=== PATIENT | female | born 1950 | race Caucasian/White ===

== ENCOUNTER → 2023-08-29 07:54 | Outpatient (BNVA) | payer BC, SELFPAY | PROVIDERS: Family Provider Family Medicine; PCP Family Medicine; Visit Provider Podiatrist Foot & Ankle Surgery | DX: M25.572 Pain in left ankle and joints of left foot (principal); S99.912A Unspecified injury of left ankle, initial encounter; S82.832A Other fracture of upper and lower end of left fibula, initial encounter for closed fracture; S93.422A Sprain of deltoid ligament of left ankle, initial encounter; W19.XXXA Unspecified fall, initial encounter | CPT/HCPCS: 73610 ==

== ENCOUNTER 2023-08-29 10:06 | Outpatient (CLI) | payer BC, SELFPAY | END 2023-08-29 10:07 | disposition home or self-care (01) | LOC: SPT 10:07 | PROVIDERS: Family Provider Family Medicine; PCP Family Medicine; Visit Provider Podiatrist Foot & Ankle Surgery | DX: Z46.89 Encounter for fitting and adjustment of other specified devices (principal); S99.919D Unspecified injury of unspecified ankle, subsequent encounter; X58.XXXD Exposure to other specified factors, subsequent encounter | CPT/HCPCS: L1902 ==

== ENCOUNTER 2023-09-12 14:01 | Outpatient (RCR) | payer BC, SELFPAY | END 2023-10-03 10:43 | disposition home or self-care (01) | LOC: SPT 14:01 | PROVIDERS: Visit Provider Podiatrist Foot & Ankle Surgery | DX: M25.572 Pain in left ankle and joints of left foot (principal); R26.89 Other abnormalities of gait and mobility | CPT/HCPCS: 97110; 97161 ==

== ENCOUNTER 2023-09-26 08:17 | Outpatient (CLI) | payer MEDICARE, SELFPAY ==
--- NOTE | 2023-09-26 08:45 | MR_ITS ---
WS: [id number] MRI LEFT ANKLE WITHOUT CONTRAST. COMPARISON: Radiographs 08/29/2023 Multiplanar, multisequence imaging is performed without contrast. Healing oblique fracture distal fibula is nondisplaced. No osteochondral lesions along the talar dome . There is moderate narrowing of the tibiotalar joint space. Normal calcaneus. Anterior and posterior talofibular ligaments are intact. Anterior talofibular ligament does contain s ome increased fluid but the majority of the ligament is intact. Deltoid ligament is normal signal. No tear. Peroneal tendons are normal. Posterior tibialis, flexor hallucis longus and flexor digitorum longus a re negative. Negative Achilles tendon. Very small amount of fluid and soft tissue edema at the ankle joint. IMPRESSION: 1. No acute fracture. 2. Healing oblique fracture distal fibula. 3. Moderate narrowing of the tibiotalar joint and osteopenia. 4. Very slight increased signal within the anterior talofibular ligament but intact. 5. Normal deltoid ligament.
== END 2023-09-26 08:18 | disposition home or self-care (01) ==
LOC: RAD 08:18
PROVIDERS: PCP Family Medicine; Visit Provider Podiatrist Foot & Ankle Surgery
DX: S82.832D Other fracture of upper and lower end of left fibula, subsequent encounter for closed fracture with routine healing (principal); M85.872 Other specified disorders of bone density and structure, left ankle and foot; X58.XXXD Exposure to other specified factors, subsequent encounter
CPT/HCPCS: 73721

== ENCOUNTER → 2023-10-01 14:18 | Outpatient (BNVA) | payer MEDICARE, SELFPAY | PROVIDERS: PCP Family Medicine; Visit Provider Podiatrist Foot & Ankle Surgery | DX: S93.422D Sprain of deltoid ligament of left ankle, subsequent encounter (principal); X58.XXXD Exposure to other specified factors, subsequent encounter | CPT/HCPCS: 99213 ==

== ENCOUNTER 2024-10-31 13:21 | Observation (INO) | payer MEDICARE, SELFPAY ==
[2024-10-31] VITALS (8 sets, daily range): BP systolic 110–168; BP diastolic 71–99; PULSE 55–88; RESP 15–19; TEMP 36.6–36.9; O2SAT 95–97; BMI 18.6
--- NOTE | 2024-10-31 13:41 | XRR_ITS ---
PROCEDURE INFORMATION: Exam: XR Left Tibia and Fibula Exam date and time: 10/31/2024 1:45 PM Age: 73 years old Clinical indication: Injury or trauma; Fall; Blunt trauma; Lower leg; Left TECHNIQUE: Imaging protocol: Radiologic exam of the left tibia and fibula. Views: 2 views. COMPARISON: CR XR tibia fibula LT 2V [id number] 07/10/2023 5:03 PM FINDINGS: Bones/joints: Mildly comminuted and mildly displaced fracture through the proximal tibial diaphysis. No other osseous or joint abnormality. The fibula appears intact. Soft tissues: Normal. XR/XR tibia fibula LT 2V [id number] IMPRESSION: Fracture of tibia.
--- NOTE | 2024-10-31 13:44 | ED_ITS ---
HPI - Fall General: Chief Complaint: Fall Stated Complaint: fall Time Seen by Provider: 10/31/24 13:33 History of Present Illness: 73-year-old female presents to [facility] with a fall last night patient is pain in the left lower leg. She was able to get up with the assistance of her daughter she has only been able to partially bear weight. No other injuries. No obvious deformity of the lower leg no hip pain or pelvic pain. No shortness of breath no chest pain no abdominal pain Associated symptoms-after fall: Denies abdominal pain, chest pain or neck pain Related Data Home Medications Medication Instructions Recorded Confirmed No Known Home Medications 10/31/24 10/31/24 Allergies Allergy/AdvReac Type Severity Reaction Status Date / Time No Known Allergies Allergy Verified 10/31/24 13:30 Review of Systems Const: Denies: fever(s) or chills Card: Denies: chest pain Resp: Denies: dyspnea GI: Denies: abdominal pain : Denies: dysuria, urinary frequency or urinary urgency Musc: Reports: extremity pain; Denies: neck pain or back pain Skin/Breast: Denies: rash PFSH ED PFSH: Social History Smoking and tobacco/nicotine status: current every day tobacco/nicotine user Alcohol intake: never Substance/Drug Use: never Physical Exam Const: GENERAL APPEARANCE: cooperative ORIENTATION/CONSCIOUSNESS: Yes awake, Yes oriented to person, Yes oriented to place and Yes oriented to time HENMT: COMMON NORMALS: normocephalic, atraumatic and hearing grossly normal bilaterally HEAD & SCALP: normocephalic and atraumatic Resp: COMMON NORMALS: normal respiratory effort, No retractions, No use of accessory muscles and clear to auscultation bilaterally AUSCULTATION: clear to auscultation bilaterally Cardio: COMMON NORMALS: regular rate, regular rhythm and No murmurs present (Cardio) RATE: regular rate RHYTHM: regular rhythm GI: COMMON NORMALS: Soft to palpation and No hepatosplenomegaly present AUSCULTATION: Yes normoactive bowel sounds PALPATION: Yes Soft to palpation, No Tenderness to palpation present (GI), No Guarding due to palpation present (GI) and Yes No hepatosplenomegaly present Extremity: OTHER: Ecchymosis left anterior tibia no obvious deformity tender to the touch dorsalis pedis posterior tibialis pulse normal no pain at the knee or hip on the left Neuro: SENSORIUM/ORIENTATION: Yes oriented to person, Yes oriented to place and Yes oriented to time Skin: COMMON NORMALS: no rashes or lesions noted GENERAL SKIN EXAM: no rashes or lesions noted Course Vital Signs: Vital signs: Vital Signs Temperature 98.1 F 10/31/24 13:22 Pulse Rate 74 10/31/24 15:30 Respiratory Rate 18 10/31/24 14:38 Blood Pressure 148/87 10/31/24 15:30 Pulse Oximetry 96 10/31/24 15:30 Oxygen Delivery Me thod Room Air 10/31/24 15:30 MDM - Fall Medical Decision Making Acute minimally displaced proximal tibia fracture. Fracture is open leg consistent with a torquing injury that probably occurred as she fell. On exam she does not have pain disproportionate to exam with plantar dorsiflexion do not believe she has a compartment syndrome at this time. Discussed with orthopedist patient has been splinted will admit with plan to do surgery in the morning. Reviewed with the patient. Medical Records I reviewed the patient's medical records. Lab Data I reviewed the patient's lab results. Radiology Impressions Tibia/Fibula X-Ray 10/31/24 13:41 IMPRESSION: Fracture of tibia. All radiology interpretation(s) finalized by discharge Discharge Plan Discharge Patient Disposition: Placed in Observation Admit Provider: Georges Cote Clinical Impression: Closed left tibial fracture Condition: Stable Coding Level of Care Code ED Broom Stitcher for Harriet Devlin
[2024-10-31] MEDS: morphine 4 mg/mL SDV 1 mL IVP ×2 (14:38→19:54)
[2024-10-31] MEDS: ondansetron 2 mg/ML SDV 2 mL 4 MG IVP (14:38)
[2024-11-01] VITALS (18 sets, daily range): BP systolic 113–152; BP diastolic 68–88; PULSE 52–83; RESP 12–18; TEMP 36.3–37; O2SAT 90–100
[2024-11-01] MEDS: morphine 4 mg/mL SDV 1 mL IVP (03:19)
[2024-11-01] MEDS: fentaNYL 50 mcg/mL INJ 2mL IVP ×2 (08:40→08:50)
--- NOTE | 2024-11-01 09:01 | ANES.PREANE2 ---
Pre-Anesthetic Assessment Height/Weight: Height 5 ft 3 in Weight 105 lb Temp Pulse Resp BP Pulse Ox O2 Del Method 98.5 F 61 18 114/69 97 Room Air 11/01/24 03:53 11/01/24 03:53 11/01/24 08:40 11/01/24 03:53 11/01/24 08:40 10/31/24 20:00 Preop Diagnosis: Hip fracture Operation Date: 11/01/24 09:25 Proposed Procedures p IM Tibial Nail Insertion(Left) - Georges Cote DO Was Beta Dex taken within 24 hours: N/A Was Clonidine taken within 24 hours: N/A Social Alcohol and Tobacco Drinks daily Exam alert, oriented x 3 and regular rate & rhythm Diminished breath sounds bilaterally Airway Submandibular: within normal limits Cervical ROM: within normal limits Mallampati: Class II Dentition: other (Edentulous) Anesthetic Plan ASA status: 2 Anesthesia: General Other: Patient's only other anesthetic was a dental procedure, no issues NPO since yesterday Patient denies all medical problems, no home meds Patient smokes and drinks daily Does admit to having a chronic cough with phlegm for hours each morning Patient is able to perform ADLs and was very active prior to the fall Plan for general anesthesia Medications/Allergies Home Medications Medication Instructions Recorded Confirmed Last Taken Type No Known Home Medications 10/31/24 10/31/24 Unknown History Allergies Allergy/AdvReac Type Severity Reaction Status Date / Time No Known Allergies Allergy Verified 10/31/24 13:30 Current Medications Generic Name Dose Route Start Last Admin Trade Name Freq PRN Reason Stop Dose Admin Fentanyl 50 mcg 11/01/24 08:26 11/01/24 08:40 Fentanyl 50 Mcg/Ml Inj 2ml IVP 50 mcg Q10M PRN Administration Preop Pain Morphine Sulfate 4 mg 10/31/24 16:14 11/01/24 03:19 Morphine 4 Mg/Ml Sdv 1 Ml IVP 4 mg Q4H PRN Administration SEVERE PAIN PFSH Anesthesia Social History Smoking and tobacco/nicotine status: current every day tobacco/nicotine user Alcohol intake: never Substance/Drug Use: never Data Anesthesia Cardiac Studies: No Data to Display
--- NOTE | 2024-11-01 09:08 | PM.HP ---
Providers/Chief Complaint Admitting Physician: Georges Cote DO Primary Care Provider: Silvino Rizvi Chief Complaint: fall History of Present Illness Demetrice Tam is a 73 year old female a fall last night patient is pain in the left lower leg. She was able to get up with the assistance of her daughter she has only been able to partially bear weight. No other injuries. No obvious deformity of the lower leg no hip pain or pelvic pain. No shortness of breath no chest pain no abdominal pain Review of Systems Const: Denies: fever(s) or chills Card: Denies: chest pain Resp: Denies: dyspnea GI: Denies: abdominal pain : Denies: dysuria, urinary frequency or urinary urgency Musc: Reports: extremity pain; Denies: neck pain or back pain Skin/Breast: Denies: rash Medications/Allergies Home Medications Medication Instructions Recorded Confirmed Last Taken Type No Known Home Medications 10/31/24 10/31/24 Unknown History Allergies Allergy/AdvReac Type Severity Reaction Status Date / Time No Known Allergies Allergy Verified 10/31/24 13:30 PFSH Acute PFSH: Social History Smoking and tobacco/nicotine status: current every day tobacco/nicotine user Alcohol intake: never Substance/Drug Use: never Vitals/I&O/Wt Last Vital Signs Temp 98.5 F 11/01/24 03:53 Pulse 61 11/01/24 03:53 Resp 18 11/01/24 08:40 BP 114/69 11/01/24 03:53 Pulse Ox 97 11/01/24 08:40 O2 Del Method Room Air 10/31/24 20:00 Weight last 48 hrs Weight 105 lb Weight 105 lb Weight 105 lb Physical Exam Narrative: Alert and oriented x 3 Head is normocephalic atraumatic Respirations are intact No evidence of any rashes or infection 5/5 strength in bilateral upper and lower extremities Sensation intact in all extremities Deep tendon reflexes 2 out of 4 bilateral upper and lower extremities Except for left lower extremity patient is able to move toes she is in a splint. A&P Assessment and plan (1) Closed left tibial fracture: Patient sustained a left tibia fracture yesterday. Plan to do intramedullary nail today. I had an open and honest discussion with the patient about the risks, benefits and alternatives to both surgical and nonsurgical treatment. The patient verbalized understanding of the inherent unpredictability associated with surgery. Risk of surgery were discussed including, but not limited to, infection, bleeding, temporary and permanent nerve damage, continued pain, stiffness, incomplete healing, need for revision surgery, blood clot and other complications. The patient verbalized understanding that there is spine is elective in nature and if they find any of these risks to be unacceptable then they should choose not to have the surgery. The patient verbalized understanding of these risks and elected to proceed with the surgery. Qualifiers: Encounter type: initial encounter Tibia location: shaft Fracture morphology: comminuted Fracture alignment: displaced Qualified Code(s): S82.252A - Displaced comminuted fracture of shaft of left tibia, initial encounter for closed fracture Attestations Medical Necessity Statement*: Tibia fracture Coding Level of Care Code Acute Code for [facility] Diagnoses Closed displaced comminuted fracture of shaft of left tibia, initial encounter S82.252A Encounter type: initial encounter Tibia location: shaft Fracture morphology: comminuted Fracture alignment: displaced
[2024-11-01] MEDS: ceFAZolin 2,000 mg SDV 2000 MG IVP ×2 (10:05→18:07)
--- NOTE | 2024-11-01 11:15 | XR_ITS ---
WS: [id number] C-ARM RADIOGRAPHS LEFT TIB-FIB; 7 IMAGES HISTORY: TERESA PICS IM LEFT TIBIAL NAIL COMPARISON: None available. Intraoperative imaging during intramedullary rodding and fixation of the tibia fracture in good posit ion and alignment. Proximal and distal locking screws appear appropriate. XR/XR tibia fibula LT 2V [id number] IMPRESSION: Intraoperative intramedullary satnam placement tibial fracture in good position an d alignment.
--- NOTE | 2024-11-01 11:21 | PM.OP ---
Operative Report Date of procedure: November 01, 2024 Pre-op diagnosis: Left tibial shaft fracture Post-op diagnosis: same Procedure done: Left tibia intramedullary nail Surgeon: Georges Cote DO Estimated blood loss (mL): 15 Procedure: Left tibia intramedullary nail Patient brought to operative suite after an Gonasi was placed in supine position. The left leg was placed on a bone ramp. Patient was prepped and draped normal sterile fashion. Skin incision was made above the patella going through the quadriceps tendon. The opening sleeve was inserted. Followed by a wire this started in the tibia just at the edge of the articular surface and just medial to the lateral tibial spine. Opening reamer was inserted. The ball-tipped guidewire was then passed across the fracture. It was measured to be 330 mm and a 10 mm nail was used. Canal was reamed to 11-1/2. The tibia nail was inserted. 2 screws were placed proximally 2 screws were placed distally. AP lateral fluoroscopy ensured the fracture and hardware in good position. Wounds were irrigated patella wound was closed with 0 Vicryl 2-0 Vicryl and olga. The screw holes were closed with olga. Sterile dressings were applied and patient was transferred to the PACU in stable condition.
--- NOTE | 2024-11-01 11:44 | ANE.PACU2 ---
Inpatient post-anesthesia follow up: Airway intact: Yes Vital signs: Temperature 97.3 F Pulse Rate 70 Respiratory Rate 17 Blood Pressure 152/80 Pulse Oximetry 92 Oxygen Delivery Me thod Room Air Oxygen Flow Rate 2 Fraction of Inspir ed Oxygen Hydration adequate: Yes Nausea and vomiting: No Pain level: 2 Mental status: Baseline
[2024-11-01] MEDS: HYDROcodone-acetaminophen 5-325 mg Tablet PO (12:01)
[2024-11-02] VITALS (10 sets, daily range): BP systolic 101–142; BP diastolic 64–83; PULSE 54–88; RESP 16–20; TEMP 36.6–36.8; O2SAT 93–97
[2024-11-02] MEDS: ceFAZolin 2,000 mg SDV 2000 MG IVP ×2 (01:54→09:36)
[2024-11-02] MEDS: HYDROcodone-acetaminophen 5-325 mg Tablet PO ×3 (01:56→15:36)
[2024-11-02] MEDS: aspirin 325 mg EC Tablet PO (07:39)
--- NOTE | 2024-11-02 11:50 | P.PN_ITS ---
Subjective Subjective: Patient is doing well pain is somewhat controlled. Patient has been able to get to the commode. Vitals/I&O/Wt Last Vital Signs Temp 98.3 F 11/02/24 11:24 Pulse 57 L 11/02/24 11:24 Resp 17 11/02/24 11:24 BP 122/81 11/02/24 11:24 Pulse Ox 96 11/02/24 11:24 O2 Del Method Room Air 11/02/24 11:24 O2 Flow Rate 2 11/01/24 11:39 11/01/24 11/02/24 11/02/24 22:59 06:59 14:59 Intake Total 380 / 760 240 / 240 Output Total 100 / 200 Balance 280 / 560 240 / 240 Weight last 48 hrs Weight 105 lb Weight 105 lb Weight 105 lb Weight 105 lb Physical Exam Narrative: Dressing clean dry and intact A&P Assessment and plan (1) Closed left tibial fracture: Patient is postop day #1 tibia fracture IM nail Aspirin for DVT prophylaxis Up with physical therapy Will consult mental health case manager for home health possibly. Possible discharge tomorrow Qualifiers: Encounter type: initial encounter Fracture alignment: displaced Fracture morphology: comminuted Tibia location: shaft Qualified Code(s): S82.252A - Displaced comminuted fracture of shaft of left tibia, initial encounter for closed fracture Attestations Medical Necessity Statement*: Pain control Coding Level of Care Code Acute Code for [facility] Diagnoses Closed displaced comminuted fracture of shaft of left tibia, initial encounter S82.252A Encounter type: initial encounter Fracture alignment: displaced Fracture morphology: comminuted Tibia location: shaft
[2024-11-03] MEDS: HYDROcodone-acetaminophen 5-325 mg Tablet PO ×3 (00:36→14:04)
[2024-11-03 04:00] VITALS: BP 124/83; PULSE 60; RESP 18; TEMP 36.4; O2SAT 96
[2024-11-03] MEDS: aspirin 325 mg EC Tablet PO (08:02)
[2024-11-03 08:19] VITALS: BP 172/89; PULSE 76; RESP 18; TEMP 36.4; O2SAT 96
[2024-11-03 08:56] LABS: Basophils % 0.4 %; Eosinophils # 0.1 10^3/uL (0.0-0.8); Eosinophils % 1.4 %; Hematocrit 35.6 % (36-47); Lymphocytes # 2.4 10^3/uL (0.8-4.8); Mean Corpuscular HGB Conc 34.6 g/dL (30-55); Mean Corpuscular Hemoglobin 38.4 pg (27-33); Mean Corpuscular Volume 111.3 fl (85-98); Mean Platelet Volume 9.9 fL (7.4-10.4); Monocytes # 0.6 10^3/uL (0.2-0.9); Monocytes % 8.5 %; Neutrophils # 3.87 10^3/uL (1.8-7.7); Neutrophils % 55.4 %; Nucleated Red Blood Cells % 0 %; Platelet Count 154 10^3/cmm (157-399); Red Cell Distribution Width 11.9 % (12.1-15.1); White Blood Count 6.98 10^3/uL (3.29-11.43)
[2024-11-03 09:09] LABS: Alanine Aminotransferase < 5 U/L (0-33); Albumin Level 3.8 g/dL (3.5-5.2); Alkaline Phosphatase 78 U/L (35-105); Anion Gap 13.1 (5-19); Aspartate Amino Transferase 19 U/L (0-32); Blood Urea Nitrogen 11 mg/dL (8-23); Calcium 9.2 mg/dL (8.5-10.5); Carbon Dioxide 28 mmol/L (22-29); Chloride 98 mmol/L (98-107); Creatinine Clr Calc Pharmacy 50.6481; Globulin 2.3 g/dL (1.3-4.6); Glucose 96 mg/dL (65-115); Osmolality Calculated 279 mOsm/kg (285-295); Potassium 4.1 mmol/L (3.5-5.1); Sodium 135 mmol/L (136-145); Total Bilirubin 1.1 mg/dL (0.15-1.2); Total Protein 6.1 g/dL (6.6-8.7)
--- NOTE | 2024-11-03 10:04 | P.PN_ITS ---
Subjective 2 Subjective: Patient is better today up with physical therapy. At this point patient stated pain is improved from yesterday still in pain Vitals/I&O/Wt Last Vital Signs Temp 97.6 F 11/03/24 08:19 Pulse 76 11/03/24 08:19 Resp 18 11/03/24 08:19 BP 172/89 11/03/24 08:19 Pulse Ox 96 11/03/24 08:19 O2 Del Method Room Air 11/03/24 08:19 O2 Flow Rate 2 11/01/24 11:39 11/02/24 11/03/24 11/03/24 22:59 06:59 14:59 Intake Total 120 / 600 480 / 480 Output Total 300 / 300 200 / 200 Balance 120 / 600 -300 / 300 280 / 280 Weight last 48 hrs Weight 104 lb 14.4 oz Weight 105 lb Physical Exam 2 Narrative: Dressing clean dry intact Data 11/03/24 08:43 11/03/24 08:43 A&P Assessment and plan (1) Closed left tibial fracture: Postop day #2 left intramedullary nail. Up with physical therapy DC home tomorrow with home health. Qualifiers: Encounter type: initial encounter Fracture alignment: displaced F racture morphology: comminuted Tibia location: shaft Qualified Code(s): S 82.252A - Displaced comminuted fracture of shaft of left tibia, initial encounter for closed fracture Attestations 2 Medical Necessity Statement*: Pain control Coding Level of Care Code Acute Code for [facility] Diagnoses Closed displaced comminuted fracture of shaft of left tibia, initial encounter S82.252A Encounter type: initial encounter Fracture alignment: displaced Fracture morphology: comminuted Tibia location: shaft
[2024-11-03 12:16] VITALS: BP 134/85; PULSE 58; RESP 16; TEMP 36.6; O2SAT 94
[2024-11-03 16:00] VITALS: BP 114/71; PULSE 60; RESP 17; TEMP 36.7; O2SAT 95
[2024-11-03 19:44] VITALS: BP 131/75; PULSE 57; RESP 16; TEMP 36.7; O2SAT 94
[2024-11-04] VITALS: BP 127/78; PULSE 61; RESP 15; TEMP 37; O2SAT 94
[2024-11-04 04:00] VITALS: BP 139/79; PULSE 52; RESP 15; TEMP 36.7; O2SAT 96
[2024-11-04] MEDS: HYDROcodone-acetaminophen 5-325 mg Tablet PO (04:59)
[2024-11-04 07:24] VITALS: BP 145/83; PULSE 50; RESP 16; TEMP 36.7; O2SAT 98
[2024-11-04] MEDS: aspirin 325 mg EC Tablet PO (08:09)
--- NOTE | 2024-11-04 08:18 | P.DS_ITS ---
Discharge Providers Date of Admission: 10/31/24 15:34 Date of Discharge: November 04, 2024 Attending Provider at Admission: Georges Cote DO Attending Provider at Discharge: Georges Cote DO Primary Care Provider: Silvino Rizvi Diagnoses at Discharge Discharge Diagnosis (1) Closed left tibial fracture: Status: Acute Qualifiers: Encounter type: initial encounter Fracture alignment: displaced Fracture morphology: comminuted Tibia location: shaft Qualified Code(s): S82.252A - Displaced comminuted fracture of shaft of left tibia, initial encounter for closed fracture Reason for Visit Reason for Visit: fall Physical Exam Narrative: Doing well pain controlled Discharge Data Studies Completed and Pending Completed Studies During Hospitalization Category Date Time Status XR tibia fibula LT 2V [id number] Routine Exams 11/01/24 11:15 Completed XR tibia fibula LT 2V [id number] Stat Exams 10/31/24 13:41 Completed Radiology Impressions Tibia/Fibula X-Ray 11/01/24 11:15 IMPRESSION: Intraoperative intramedullary satnam placement tibial fracture in good position and alignment. Laboratory Results WBC 6.98 10^3/uL (3.29-11.43) 11/03/24 08:43 RBC 3.20 10^6/uL (3.85-5.65) L 11/03/24 08:43 Hgb 12.30 g/dL (11.27-16.99) 11/03/24 08:43 Hct 35.6 % (36-47) L 11/03/24 08:43 MCV 111.3 fl (85-98) H 11/03/24 08:43 MCH 38.4 pg (27-33) H 11/03/24 08:43 MCHC 34.6 g/dL (30-55) 11/03/24 08:43 RDW 11.9 % (12.1-15.1) L 11/03/24 08:43 Plt Count 154 10^3/cmm (157-399) L 11/03/24 08:43 MPV 9.9 fL (7.4-10.4) 11/03/24 08:43 Neut % (Auto) 55.4 % 11/03/24 08:43 Lymph % (Auto) 34.0 % 11/03/24 08:43 Storey % (Auto) 8.5 % 11/03/24 08:43 Eos % (Auto) 1.4 % 11/03/24 08:43 Baso % (Auto) 0.4 % 11/03/24 08:43 Neut # (Auto) 3.87 10^3/uL (1.8-7.7) 11/03/24 08:43 Lymph # (Auto) 2.4 10^3/uL (0.8-4.8) 11/03/24 08:43 Storey # (Auto) 0.6 10^3/uL (0.2-0.9) 11/03/24 08:43 Eos # (Auto) 0.1 10^3/uL (0.0-0.8) 11/03/24 08:43 Baso # (Auto) 0.0 10^3/uL (0.0-0.1) 11/03/24 08:43 Nucleated RBC % (auto) 0 % 11/03/24 08:43 Nucleated RBCs # 0.0 /100WBC 11/03/24 08:43 Sodium 135 mmol/L (136-145) L 11/03/24 08:43 Potassium 4.1 mmol/L (3.5-5.1) 11/03/24 08:43 Chloride 98 mmol/L (98-107) 11/03/24 08:43 Carbon Dioxide 28 mmol/L (22-29) 11/03/24 08:43 Anion Gap 13.1 (5-19) 11/03/24 08:43 BUN 11 mg/dL (8-23) 11/03/24 08:43 Creatinine 0.8 mg/dL (0.5-0.9) 11/03/24 08:43 GFR Calculation Not Reportable 11/03/24 08:43 Glucose 96 mg/dL (65-115) 11/03/24 08:43 Calculated Osmolality 279 mOsm/kg (285-295) L 11/03/24 08:43 Calcium 9.2 mg/dL (8.5-10.5) 11/03/24 08:43 Total Bilirubin 1.1 mg/dL (0.15-1.2) 11/03/24 08:43 AST 19 U/L (0-32) 11/03/24 08:43 ALT < 5 U/L (0-33) 11/03/24 08:43 Alkaline Phosphatase 78 U/L (35-105) 11/03/24 08:43 Total Protein 6.1 g/dL (6.6-8.7) L 11/03/24 08:43 Albumin 3.8 g/dL (3.5-5.2) 11/03/24 08:43 Globulin 2.3 g/dL (1.3-4.6) 11/03/24 08:43 Vitals Last Vital Signs Temp 98.1 F 11/04/24 07:24 Pulse 50 L 11/04/24 07:24 Resp 16 11/04/24 07:24 BP 145/83 11/04/24 07:24 Pulse Ox 98 11/04/24 07:24 O2 Del Method Room Air 11/04/24 07:24 O2 Flow Rate 2 11/01/24 11:39 Discharge Plan Discharge Patient Disposition: Home Condition: Stable Prescriptions: New hydrocodone-acetaminophen 5-325 mg tablet 1 - 2 tab PO .Q4-6H Qty: 40 0RF aspirin 325 mg tablet 325 mg PO DAILY 30 Days Qty: 30 0RF Discharge Orders: Discharge Order (Routine); Ordered 11/04/24 Ordered By: Georges Cote Referrals: Beluah Cornejo NP [Nurse Practitioner] - 11/17/24 9:00 am Discharge Diet: Advance as tolerated Discharge Activity: Limit activity as instructed Patient Instructions: Acute Wound Care (DC), Opioid Safety, Post Anesthesia Care Activity Restrictions/Additional Instructions: You are being discharged from the hospital today during which time you have been under the care of Dr. Cote. You had a left tibia fracture. You were treated for this injury with left tibia intramedullary nail. You may resume you normal diet (including any special diets as directed by your primary doctor) as well as your home medications. You should follow up with you primary doctor if you have any questions regarding medication you took prior to your stay in the hospital. You may take your pain medication as prescribed. After the first few days, take your pain medication as needed. Do not drive or drink alcohol while taking your pain medication. Your injury may increase your risk of developing a blood clot,or DVT, in your arm or leg. This could potentially dislodge and travel to your lungs and become a life threatening condition called apulmonary embolus,or PE. You have been prescribed aspirin to be taken to prevent this. Frequent movement of the legs will also help prevent this from occurring. If you develop any new or worsening cough, chestpain, bloody sputum or shortness of breath, call 911 or go to the EmergencyRoom. Always keep your surgical incision/dressing clean and dry. If you experience increasing pain at your incision site, redness, swelling, increasing discharge, foul odors, or fevers (greater than 100.4), night sweats or chills you should call the office at the above number. If you feel this is an emergency you should be evaluated in the Emergency Department of a nearby hospital. Orthopedic Patient Instructions Summary: Weight Bearing: As tolerated Activity: As tolerated. Diet: Regular. Wound Care: Keep dressing clean and dry. Anticoagulation: Aspirin Pain Medication: Take only as needed. Ice, rest and elevation will be of great benefit. Please plan to follow-up jacky Cote in 2 weeks. You will need to call the clinic [phone] to schedule this visit. Thank you far allowing me to part icipate in your care. Do not hesitate to call the office with any questions or concerns. Discharge Attestations Time Spent in Discharge Care*: less than 30 min Quality Metrics Clinical Quality Measures [ No reported AMI, CVA or VTE this stay] Coding Level of Care Code Acute Code for [facility] Fwd Diagnoses Closed displaced comminuted fracture of shaft of left tibia, initial encounter S82.252A Encounter type: initial encounter Fracture alignment: displaced Fracture morphology: comminuted Tibia location: shaft
[2024-11-04 09:30] VITALS: BP 145/80; PULSE 56; RESP 16; TEMP 36.7; O2SAT 98
== END 2024-11-04 09:45 | disposition home health service (06) ==
LOC: ER 15:02 → MEDSURG 15:34
PROVIDERS: Admitting Provider Orthopaedic Surgery; Emergency Provider Family Medicine; PCP Family Medicine; Visit Provider Orthopaedic Surgery
PROC: (CPT 27759; principal; 2024-11-01 09:05)
DX: S82.202A Unspecified fracture of shaft of left tibia, initial encounter for closed fracture (principal); W19.XXXA Unspecified fall, initial encounter; F17.200 Nicotine dependence, unspecified, uncomplicated; R05.3 Chronic cough
CPT/HCPCS: 27759; 36415; 73590; 76000; 80053; 85025; 96374; 96375; 97116; 97161; 97166; 97530; 99285; C1713; G0378; J0690; J1100; J1885; J2250; J2270; J2405; J2704; J3010

== ENCOUNTER → 2024-11-18 15:46 | Outpatient (BNVA) | payer MEDICARE, SELFPAY | PROVIDERS: PCP Family Medicine; Visit Provider Orthopaedic Surgery | DX: S82.252A Displaced comminuted fracture of shaft of left tibia, initial encounter for closed fracture (principal); W19.XXXA Unspecified fall, initial encounter | CPT/HCPCS: 73590; 99024 ==

== ENCOUNTER → 2024-12-16 15:56 | Outpatient (BNVA) | payer MEDICARE, SELFPAY | PROVIDERS: PCP Family Medicine; Visit Provider Orthopaedic Surgery | DX: S82.252A Displaced comminuted fracture of shaft of left tibia, initial encounter for closed fracture (principal); X58.XXXA Exposure to other specified factors, initial encounter | CPT/HCPCS: 73590; 99024 ==

== ENCOUNTER 2025-03-12 07:32 | Inpatient (IN) | payer MEDICARE, MEDICAID, SELFPAY ==
[2025-03-12] VITALS (10 sets, daily range): BP systolic 111–155; BP diastolic 66–88; PULSE 58–79; RESP 16–18; TEMP 36.4–37.1; O2SAT 93–99
--- NOTE | 2025-03-12 07:54 | XR_ITS ---
WS: [id number] Left knee, 3 views, 03/12/2025 Clinical Data: Trauma Comparison: Left leg, 01/05/2025 Findings: There is a comminuted impacted fracture of the distal left femur. There is lateral deviation of the distal fracture fragment. The left tibia shows a intramedullary satnam fixed with 2 locking screws. XR/XR knee LT 3V* [id number] Impression: Comminuted impacted fracture of distal left femur.
--- NOTE | 2025-03-12 09:15 | XRR_ITS ---
XR/XR femur LT min 2V* [id number] PROCEDURE INFORMATION: Exam: XR Left Femur Exam date and time: 03/12/2025 9:18 AM Age: 74 years old Clinical indication: Pain; Thigh; Left; Additional info: Pain, left TECHNIQUE: Imaging protocol: Radiologic exam of the left femur. Views: 2 views. COMPARISON: CR XR knee LT 3V* [id number] 03/12/2025 9:13 AM FINDINGS/IMPRESSION: Bones/joints: There is a comminuted, angulated and slightly impacted fracture of the distal left femur. The proximal and mid shaft of the left femur is intact. There is normal alignment of the left hip. The visualized pubic rami are intact. Soft tissues: Unremarkable.
--- NOTE | 2025-03-12 09:19 | XR_ITS ---
WS: [id number] Portable AP upright chest, 03/12/2025 Clinical Data: dyspnea/cough Comparison: Two-view chest, 01/18/2017. Findings: No nodules, masses or effusions are seen. The heart is normal. The pulmonary vascularity is not increased. No pneumonia or pneumothorax is seen. The diaphragms are flattened. The aortic arch shows tortuosity. There is an orthopedic anchor in the right humeral head. XR/XR chest 1V portable [id number] Impression: Atherosclerosis and hyperinflation.
[2025-03-12] MEDS: fentaNYL 50 mcg/mL INJ 2mL 25 MCG IVP (09:43)
[2025-03-12 09:47] LABS: Basophils # 0.1 10^3/uL (0.0-0.1); Basophils % 0.7 %; Eosinophils % 0.6 %; Hematocrit 44.2 % (36-47); Lymphocytes # 1.8 10^3/uL (0.8-4.8); Lymphocytes % 24.9 %; Mean Corpuscular HGB Conc 34.4 g/dL (30-55); Mean Corpuscular Hemoglobin 37.7 pg (27-33); Mean Corpuscular Volume 109.7 fl (85-98); Mean Platelet Volume 10.2 fL (7.4-10.4); Monocytes # 0.4 10^3/uL (0.2-0.9); Monocytes % 5.7 %; Neutrophils # 4.77 10^3/uL (1.8-7.7); Neutrophils % 67.4 %; Nucleated Red Blood Cells % 0 %; Platelet Count 153 10^3/cmm (157-399); Red Blood Count 4.03 10^6/uL (3.85-5.65); Red Cell Distribution Width 17.8 % (12.1-15.1); White Blood Count 7.07 10^3/uL (3.29-11.43)
--- NOTE | 2025-03-12 09:51 | ED_ITS ---
HPI - Extremity Problem 2 General: Chief complaint: Extremity Problem,Nontraumatic Stated complaint: left knee pain - ETOH Time Seen by Provider: 03/12/25 07:49 History of Present Illness: 74-year-old female who presents emergenc y room via EMS. Patient appears highly intoxicated smells strongly of alcohol she does admit to have been drinking last night states she had 2 drinks between 7 PM and 9 PM last night. Patient is complaining of severe right leg pain. She said she fell but she cannot recall exactly what happened she has no evidence of trauma to her head. Denies neck pain. No chest pain or abdominal pain moderate swelling to the distal femur on the right Associated symptoms: Deny chest pain, fever(s) or rash Related Data Home Medications ?Medication ?Instructions ?Recorded ?Confirmed ibuprofen 800 mg tablet 800 mg PO DAILY 03/12/2512/06 Allergies Allergy/AdvReac Type Severity Reaction Status Date / Time No Known Allergies Allergy Verified 12/16/24 16:15 Review of Systems 2 Const: Denies: fever(s) or chills Card: Denies: chest pain Resp: Denies: dyspnea GI: Denies: abdominal pain : Denies: dysuria, urinary frequency or urinary urgency Musc: Reports: extremity pain; Denies: neck pain or back pain Skin/Breast: Denies: rash PFSH ED 2 PFSH: Medical History Diarrhea Closed left tibial fracture Sprain of deltoid ligament of left ankle Closed fracture of left distal fibula Social History Smoking and tobacco/nicotine status: current every day tobacco/nicotine user Alcohol intake: current Substance/Drug Use: never Household members: family Physical Exam 2 Const: GENERAL APPEARANCE: cooperative ORIENTATION/CONSCIOUSNESS: Yes awake HENMT: COMMON NORMALS: normocephalic, atraumatic and hearing grossly normal bilaterally HEAD & SCALP: normocephalic and atraumatic Resp: COMMON NORMALS: normal respiratory effort, No retractions, No use of accessory muscles and clear to auscultation bilaterally AUSCULTATION: clear to auscultation bilaterally Cardio: COMMON NORMALS: regular rate, regular rhythm and No murmurs present (Cardio) RATE: regular rate RHYTHM: regular rhythm GI: COMMON NORMALS: Soft to palpation and No hepatosplenomegaly present A USCULTATION: Yes normoactive bowel sounds PALPATION: Yes Soft to palpation, No Tenderness to palpation present (GI), No Guarding due to palpation present (GI) and Yes No hepatosplenomegaly present Extremity: OTHER: Examination right leg moderate swelling of proximal distal femur. X-ray shows distal femur fracture supracondylar comminuted mildly displaced Skin: COMMON NORMALS: no rashes or lesions noted GENERAL SKIN EXAM: no rashes or lesions noted Course 2 Vital Signs: Vital signs: Vital Signs Temperature 97.6 F 03/12/25 07:40 Pulse Rate 58 L 03/12/25 12:16 Respiratory Rate 18 03/12/25 07:40 Blood Pressure 111/66 03/12/25 12:16 Pulse Oximetry 97 03/12/25 12:16 Oxygen Delivery Me thod Room Air 03/12/25 12:16 MDM - Extremity (Nontraumatic) Medical Decision Making Patient blood alcohol over 200. She insist she stopped drinking last night between 930 and 10. Remainder of her labs drawn. Her biggest complaint is that of the leg pain at this time she was given 25 mcg of fentanyl consult orthopedics admit to medicine. Patient likely will require CIWA protocol for withdrawal. Orders written. Medical Records I reviewed the patient's medical records. Lab Data I reviewed the patient's lab results. 03/12/25 09:38 03/12/25 09:38 Radiology Impressions Knee X-Ray 03/12/25 07:54 Impression: Comminuted impacted fracture of distal left femur. Femur X-Ray 03/12/25 09:15 PROCEDURE INFORMATION: Exam: XR Left Femur Exam date and time: 03/12/2025 9:18 AM Age: 74 years old Clinical indication: Pain; Thigh; Left; Additional info: Pain, left TECHNIQUE: Imaging protocol: Radiologic exam of the left femur. Views: 2 views. COMPARISON: CR XR knee LT 3V* [id number] 03/12/2025 9:13 AM FINDINGS/IMPRESSION: Bones/joints: There is a comminuted, angulated and slightly impacted fracture of the distal left femur. The proximal and mid shaft of the left femur is intact. There is normal alignment of the left hip. The visualized pubic rami are intact. Soft tissues: Unremarkable. Chest X-Ray 03/12/25 09:19 Impression: Atherosclerosis and hyperinflation. Laboratory Results WBC 7.07 10^3/uL (3.29-11.43) 03/12/25 09:38 RBC 4.03 10^6/uL (3.85-5.65) 03/12/25 09:38 Hgb 15.20 g/dL (11.27-16.99) 03/12/25 09:38 Hct 44.2 % (36-47) 03/12/25 09:38 MCV 109.7 fl (85-98) H 03/12/25 09:38 MCH 37.7 pg (27-33) H 03/12/25 09:38 MCHC 34.4 g/dL (30-55) 03/12/25 09:38 RDW 17.8 % (12.1-15.1) H 03/12/25 09:38 Plt Count 153 10^3/cmm (157-399) L 03/12/25 09:38 MPV 10.2 fL (7.4-10.4) 03/12/25 09:38 Neut % (Auto) 67.4 % 03/12/25 09:38 Lymph % (Auto) 24.9 % 03/12/25 09:38 Ceiba % (Auto) 5.7 % 03/12/25 09:38 Eos % (Auto) 0.6 % 03/12/25 09:38 Baso % (Auto) 0.7 % 03/12/25 09:38 Neut # (Auto) 4.77 10^3/uL (1.8-7.7) 03/12/25 09:38 Lymph # (Auto) 1.8 10^3/uL (0.8-4.8) 03/12/25 09:38 Ceiba # (Auto) 0.4 10^3/uL (0.2-0.9) 03/12/25 09:38 Eos # (Auto) 0.0 10^3/uL (0.0-0.8) 03/12/25 09:38 Baso # (Auto) 0.1 10^3/uL (0.0-0.1) 03/12/25 09:38 Nucleated RBC % (auto) 0 % 03/12/25 09:38 Nucleated RBCs # 0.0 /100WBC 03/12/25 09:38 PT 13.80 SECONDS (12.1-14.9) 03/12/25 09:38 INR 0.99 (0.8-1.2) 03/12/25 09:38 APTT 23.0 SECONDS (23.9-36.7) L 03/12/25 09:38 Sodium 138 mmol/L (136-145) 03/12/25 09:38 Potassium 3.7 mmol/L (3.5-5.1) 03/12/25 09:38 Chloride 102 mmol/L (98-107) 03/12/25 09:38 Carbon Dioxide 23 mmol/L (22-29) 03/12/25 09:38 Anion Gap 16.7 (5-19) 03/12/25 09:38 BUN 8 mg/dL (8-23) 03/12/25 09:38 Creatinine 0.6 mg/dL (0.5-0.9) 03/12/25 09:38 GFR Calculation Not Reportable 03/12/25 09:38 Glucose 109 mg/dL (65-115) 03/12/25 09:38 Calculated Osmolality 285 mOsm/kg (285-295) 03/12/25 09:38 Calcium 8.5 mg/dL (8.5-10.5) 03/12/25 09:38 Total Bilirubin 0.5 mg/dL (0.15-1.2) 03/12/25 09:38 AST 22 U/L (0-32) 03/12/25 09:38 ALT 13 U/L (0-33) 03/12/25 09:38 Alkaline Phosphatase 139 U/L (35-105) H 03/12/25 09:38 Ammonia 25 umol/L (11-51) 03/12/25 09:38 Creatine Kinase 82 U/L (26-192) 03/12/25 09:38 Troponin T Baseline 38 ng/L (0-10) H 03/12/25 12:37 Total Protein 5.4 g/dL (6.6-8.7) L 03/12/25 09:38 Albumin 3.2 g/dL (3.5-5.2) L 03/12/25 09:38 Globulin 2.2 g/dL (1.3-4.6) 03/12/25 09:38 Ethyl Alcohol 203 mg/dL (0-10) H 03/12/25 09:38 Influenza A (PCR) Negative (Negative) 03/12/25 12:14 Influenza Type B (PCR) Negative (Negative) 03/12/25 12:14 RSV (PCR) Negative (Negative) 03/12/25 12:14 SARS-CoV-2 (PCR) Negative (Negative) 03/12/25 12:14 All radiology interpretation(s) finalized by discharge Discharge Plan Discharge Patient Disposition: Admitted As Inpatient Admit Provider: Jeff De León Clinical Impression: Closed fracture of left distal fibula, Alcohol intoxication Condition: Stable Coding Level of Care Code ED Ambulatory Care Coordinator for Harriet Devlin
[2025-03-12 09:59] LABS: INR 0.99 (0.8-1.2)
[2025-03-12 10:02] LABS: Alanine Aminotransferase 13 U/L (0-33); Albumin Level 3.2 g/dL (3.5-5.2); Alcohol Level 203 mg/dL (0-10); Alkaline Phosphatase 139 U/L (35-105); Anion Gap 16.7 (5-19); Aspartate Amino Transferase 22 U/L (0-32); Blood Urea Nitrogen 8 mg/dL (8-23); Calcium 8.5 mg/dL (8.5-10.5); Carbon Dioxide 23 mmol/L (22-29); Chloride 102 mmol/L (98-107); Creatine Phosphokinase 82 U/L (26-192); Globulin 2.2 g/dL (1.3-4.6); Glucose 109 mg/dL (65-115); Osmolality Calculated 285 mOsm/kg (285-295); Potassium 3.7 mmol/L (3.5-5.1); Sodium 138 mmol/L (136-145); Total Bilirubin 0.5 mg/dL (0.15-1.2); Total Protein 5.4 g/dL (6.6-8.7)
[2025-03-12 10:08] LABS: Ammonia 25 umol/L (11-51)
--- NOTE | 2025-03-12 10:21 | ECG_ITS ---
[facility] Test Date: 2025-03-12 Pat Name: Demetrice Tam Department: Room: Gender: Female [employer]her: : 1950 Requested By: Tito Christiansen Order Number: [id number] Ina MD: Rey Pedraza M.D. Measurements Intervals [place] Rate: 59 P: -82 [place]: 168 QRS: 65 QRSD: 77 T: -89 QT: 397 QTc: 394 Interpretive Statements ECTOPIC ATRIAL BRADYCARDIA ST DEVIATION AND MODERATE T-WAVE ABNORMALITY, CONSIDER ANTERIOR ISCHEMIA [-0.1+ mV T-WAVE IN V3/V4] No previous ECG available for comparison Electronically Signed On 03-16-2025 09:29:10 CDT by Rey Pedraza M.D. [email or web address] [id number]
--- NOTE | 2025-03-12 11:50 | P.HP_ITS ---
Providers/Chief Complaint 2 Primary Care Provider: Silvino Rizvi Chief Complaint: left knee pain - ETOH History of Present Illness Ms. Tam presents after an episode in which she woke up on the floor without a clear recollection of falling. She reports severe pain in her knee area with the joint feeling ?shut? and notes visible bruising on both her knee and head. She was found down by her daughter with EtOH odor who had called EMS. In addition, she has experienced chills for the past two days and persistent diarrhea since her last visit, which she attributes to a recent course of antibiotics that disrupted her gut jerald. She also mentions that her stools are darker than usual, a change she associated with her prior use of vitamins (which she has since discontinued). The patient drinks two measured alcoholic drinks each night and admits to occasional cigarette smoking. EtOH level in ER is 203 mg/dL. She states alcohol makes her sleepy. She has a history of a leg fracture in October as well as a prior ankle injury. She uses a neti pot to relieve morning congestion and has been given a course of COPD medication due to this by her primary provider although denies COPD or other lung disease. She denies chest pain, heart issues, stroke, or significant breathing problems. Review of Systems 2 Const: Reports: chills and change in sleep pattern; Denies: fever(s), body aches or malaise ENMT: Denies: throat pain Card: Denies: chest pain, edema, pre-syncope or dyspnea on exertion Resp: Denies: dyspnea, productive cough, change in phlegm color or hemoptysis GI: Denies: abdominal pain, nausea, vomiting, diarrhea, constipation, hematochezia or melena : Denies: flank pain, urinary frequency or hematuria Musc: Reports: extremity pain; Denies: back pain, joint swelling or joint redness Skin/Breast: Denies: rash or new lesions Neuro: Denies: headache(s) or confusion Medications/Allergies Home Medications ?Medication ?Instructions ?Recorded ?Confirmed ?Last Taken ?Type ibuprofen 800 mg tablet 800 mg PO DAILY 03/12/2512/06 Unknown History Allergies Allergy/AdvReac Type Severity Reaction Status Date / Time No Known Allergies Allergy Verified 12/16/24 16:15 PFSH Acute 2 PFSH: Medical History (Updated 03/12/25 @ 12:17 by Jeff De León MD) Diarrhea Closed left tibial fracture Sprain of deltoid ligament of left ankle Closed fracture of left distal fibula Social History (Updated 03/12/25 @ 12:00 by Jeff De León MD) Smoking and tobacco/nicotine status: current every day tobacco/nicotine user Alcohol intake: current Substance/Drug Use: never Household members: family Vitals/I&O/Wt Last Vital Signs Temp 97.6 F 03/12/25 07:40 Pulse 76 03/12/25 10:30 Resp 18 03/12/25 07:40 BP 155/77 03/12/25 10:30 Pulse Ox 99 03/12/25 10:30 O2 Del Method Room Air 03/12/25 10:30 Physical Exam 2 Const: COMMON NORMALS: patient oriented x3 and alert GENERAL APPEARANCE: c ooperative ORIENTATION/CONSCIOUSNESS: Yes awake HENMT: COMMON NORMALS: oropharynx normal Neck/C-Spine: COMMON NORMALS: no JVD Resp: COMMON NORMALS: normal respiratory effort and clear to auscultation bilaterally AUSCULTATION: clear to auscultation bilaterally Cardio: COMMON NORMALS: no JVD, regular rhythm, S1 normal heart sound present, S2 normal heart sound present and No murmurs present (Cardio) RHYTHM: regular rhythm HEART SOUNDS: S1 normal heart sound present and S2 normal heart sound present GI: COMMON NORMALS: Normal to inspection, nondistended, normoactive bowel sounds present, Soft to palpation and non-tender PALPATION: Yes Soft to palpation Extremity: COMMON NORMALS: no joint enlargement and no pedal edema N ARRATIVE EXTREMITY EXAM: Inverted left lower extremity, without cyanosis, mottling, redness or edema. Neuro: COMMON NORMALS: patient oriented x3 and moves all extremities S ENSORIUM/ORIENTATION: Yes alert Skin: COMMON NORMALS: no rashes or lesions noted GENERAL SKIN EXAM: no rashes or lesions noted OTHER: Chronic venous stasis dermatitis BLLE Data 03/12/25 09:38 03/12/25 09:38 A&P Assessment and plan (1) Closed left femoral fracture: Found down on the floor by her daughter with EtOH odor this morning patient is stated that she drinks 2 drinks a night to help her sleep, does not remember getting up or falling. EtOH level in ER 203 on review. She does state that alcohol makes her sleepy. On waking up having significant pain, deformity of the distal left thigh. X-ray reviewed with finding of comminuted impacted fracture of distal left femur. Reviewed vitals, CBC, INR, PTT, CMP, EtOH level, chest x-ray, knee x-ray, femur x-ray, ER provider note, discussed with ER provider. Orthopedics has been consulted by ER for further assessment management of left femoral fracture. She understands that she has elevation of risk of going through surgery. She states that she has been previously very active, tending to her garden, maintaining her home. This has gotten worse recently due to her ankle pain, for which she has been taking collagen, however, she does want to mobilize again and get back to her life, so does want to pursue surgical repair of her left femur. Will obtain baseline EKG. Would allow time for EtOH to cleared from her system. Otherwise do not see anything else that should delay surgical repair. She received a dose of IV fentanyl in ER for pain. Continue with morphine IV for severe breakthrough pain. Acetaminophen as needed. (2) Alcohol intoxication: Discussed with her complete abstinence from alcohol due to risk of falls, fractures. I previously had a fracture on the opposite leg requiring surgical repair. She verbalized understanding. Monitor for any signs of alcohol withdrawal. Plan Alcohol use disorder: She is not ready for rehabilitation at this time, discussed with her to quit, she does state that she has been drinking 2 drinks a night to help her sleep. Discussed with her alcohol is a poor choice for sleeping aid with significant risk associated, including risk of altered mental status, fall and injury as in her case, as well as additional risks. She verbalized understanding. Continue to encourage cessation. Diarrhea: Denies chronic diarrhea, but has had persistent diarrhea she states since last hospitalization after receiving antibiotics. Due to this prefers not to take antibiotics unless absolutely necessary. Stool has been formed up recently and currently without diarrhea. Smoking: Discussed smoking for 3 and half minutes including cessation, she has tried nicotine patch in the past, and has had side effects including bad dreams, declines any nicotine replacement here in the hospital. She states she does not smoke a lot and lately not enough to make her crave cigarettes while in the hospital. PDMP PDMP Reviewed: Not Reviewed Attestations 2 Medical Necessity Statement*: Admission of over 2 midnights dissipated for assessment management of comminuted, mildly displaced left femoral fracture in an elderly lady after alcohol intoxication. Coding Level of Care Code Acute Code for Chg Fwd Diagnoses Closed left femoral fracture S72.92XA Alcohol intoxication F10.929
[2025-03-12 13:01] LABS: Troponin(5th) Baseline 38 ng/L (0-10)
[2025-03-12 13:03] LABS: Influenza A NEGATIVE (Negative); Influenza B NEGATIVE (Negative); Respiratory Syncytial Virus Ce NEGATIVE (Negative); SARS-CoV-2 PCR NEGATIVE (Negative)
[2025-03-12 15:32] LABS: Troponin 5 2HR 35.85 ng/L (0-10); Troponin 5 2HR Delta -2.15 ABS# (0-10)
[2025-03-12] MEDS: enoxaparin 40 mg/0.4 mL Syringe SUBCUT (16:15)
--- NOTE | 2025-03-12 16:43 | P.CONIM_ITS ---
Providers/Reason For Consult 2 Consulting Physician/Specialty*: Cristobal Galan MD orthopedic surgery Reason for Consult*: Supracondylar fracture left distal femur Attending Physician: Jeff De León Primary Care Provider: Silvino Rizvi History of Present Illness History of Present Illness Demetrice Tam is a 74 year old female who is brought to the ED this a.m. for pain and deformity of the left lower extremity. Patient was found by her daughter on the floor. Patient indicates she does not know what happened. Patient has a history of a alcoholism/alcohol abuse. Patient claims she did not drink a lot last night but she only drinks 2 cocktails a night. Blood alcohol levels were over 200 in the ED. X-rays in the ED demonstrated bicondylar supracondylar fracture of the left distal femur. There is some angulation and not a whole lot of displacement. Patient was admitted through the hospitalist service and orthopedic consultation was obtained Review of Systems 2 Const: Reports: change in sleep pattern; Denies: fever(s), chills, body aches or malaise ENMT: Denies: throat pain Card: Denies: chest pain, edema, pre-syncope or dyspnea on exertion Resp: Denies: dyspnea, productive cough, change in phlegm color or hemoptysis GI: Denies: abdominal pain, nausea, vomiting, diarrhea, constipation, hematochezia or melena : Denies: flank pain, dysuria, urinary frequency, urinary urgency or hematuria Musc: Reports: extremity pain; Denies: neck pain, back pain, joint swelling or joint redness Skin/Breast: Denies: rash or new lesions Neuro: Denies: headache(s) or confusion Medications/Allergies Home Medications ?Medication ?Instructions ?Recorded ?Confirmed ?Last Taken ?Type ibuprofen 800 mg tablet 800 mg PO DAILY 03/12/2512/06 Unknown History Allergies Allergy/AdvReac Type Severity Reaction Status Date / Time No Known Allergies Allergy Verified 12/16/24 16:15 Current Medications Generic Name Dose Route Start Last Admin Trade Name Freq PRN Reason Stop Dose Admin Enoxaparin Sodium 40 mg 03/12/25 14:55 03/12/25 16:15 Enoxaparin 40 Mg/0.4 Ml Syringe SUBCUT 40 mg Q24H EDEN Administration PFSH Acute 2 PFSH: Medical History Diarrhea Closed left tibial fracture Sprain of deltoid ligament of left ankle Closed fracture of left distal fibula Social History Smoking and tobacco/nicotine status: current every day tobacco/nicotine user Alcohol intake: current Substance/Drug Use: never Household members: family Vitals/I&O/Wt Last Vital Signs Temp 98.2 F 03/12/25 15:50 Pulse 72 03/12/25 15:50 Resp 18 03/12/25 15:50 BP 149/75 03/12/25 15:50 Pulse Ox 96 03/12/25 15:50 O2 Del Method Room Air 03/12/25 15:50 03/12/25 03/12/25 03/12/25 06:59 14:59 22:59 Output Total 600 / 600 Balance -600 / -600 Physical Exam 2 Narrative: Orthopedic exam demonstrates a shortened left femur that is propped up on a pillow for support. Otherwise no other gross abnormalities. There does appear to be some swelling about the area. No open wounds. Neurovascular intact distally. Data 03/12/25 09:38 03/12/25 09:38 Other data: Review of the x-rays demonstrates a bicondylar fracture of the distal femur with comminution through the [place]y seal region of the distal femur on the left A&P Assessment and plan (1) Supracondylar fracture of left femur: Patient has a fracture of the distal femur on the left with moderate comminution Plan Plan at this time is for open reduction internal fixation of distal left femur fracture as soon as medical clearance has been achieved. Plan for surgery tomorrow afternoon. Patient has had all risk benefits treatment alternatives discussed with her she is agreeable to this at this time. PDMP PDMP Reviewed: Not Reviewed Coding Level of Care Code Acute Code for Chg Fwd Diagnoses Closed supracondylar fracture of left femur, initial encounter S72.452A Encounter type: initial encounter Fracture type: closed
[2025-03-12] MEDS: morphine 4 mg/mL SDV 1 mL 2 MG IVP ×2 (17:15→21:34)
--- NOTE | 2025-03-12 18:26 | ECG_ITS ---
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 Measurements Intervals [place] Rate: 73 P: 257 [place]: 149 QRS: 34 QRSD: 81 T: -71 QT: 378 QTc: 419 Interpretive Statements SUPRAVENTRICULAR RHYTHM WITH BASELINE ARTIFACT ST DEVIATION AND MODERATE T-WAVE ABNORMALITY, CONSIDER ANTERIOR ISCHEMIA [-0.1+ mV T-WAVE IN V3/V4] Compared to ECG 03/12/2025 10:21:33 Bradycardia, nonsinus no longer present T-wave abnormality still present Possible ischemia still present Electronically Signed On 03-16-2025 10:35:18 CDT by Rey Pedraza M.D. [email or web address] [id number]
[2025-03-12 19:08] LABS: Troponin 5 6HR 36.47 ng/L (0-10)
[2025-03-12 19:20] LABS: Troponin 5 6HR Delta -1.53 ng/L (0-12)
[2025-03-13] VITALS (22 sets, daily range): BP systolic 128–155; BP diastolic 78–92; PULSE 60–81; RESP 12–20; TEMP 36.4–37.4; O2SAT 88–100
[2025-03-13] MEDS: morphine 4 mg/mL SDV 1 mL 2 MG IVP ×2 (03:44→20:15)
[2025-03-13 05:09] LABS: Basophils % 0.4 %; Eosinophils % 0.1 %; Hematocrit 40.8 % (36-47); Lymphocytes # 1.9 10^3/uL (0.8-4.8); Lymphocytes % 22.4 %; Mean Corpuscular HGB Conc 34.3 g/dL (30-55); Mean Corpuscular Hemoglobin 37.8 pg (27-33); Mean Corpuscular Volume 110.3 fl (85-98); Mean Platelet Volume 10.8 fL (7.4-10.4); Monocytes # 0.9 10^3/uL (0.2-0.9); Monocytes % 11.1 %; Neutrophils # 5.46 10^3/uL (1.8-7.7); Neutrophils % 65.8 %; Nucleated Red Blood Cells % 0 %; Platelet Count 124 10^3/cmm (157-399); Red Cell Distribution Width 18.2 % (12.1-15.1)
[2025-03-13 05:34] LABS: Alanine Aminotransferase 13 U/L (0-33); Albumin Level 2.9 g/dL (3.5-5.2); Alkaline Phosphatase 133 U/L (35-105); Anion Gap 13.2 (5-19); Aspartate Amino Transferase 24 U/L (0-32); Blood Urea Nitrogen 10 mg/dL (8-23); Calcium 8.2 mg/dL (8.5-10.5); Carbon Dioxide 28 mmol/L (22-29); Chloride 103 mmol/L (98-107); Creatinine Clr Calc Pharmacy 49.1734; Globulin 2.1 g/dL (1.3-4.6); Glucose 102 mg/dL (65-115); Osmolality Calculated 289 mOsm/kg (285-295); Potassium 4.2 mmol/L (3.5-5.1); Sodium 140 mmol/L (136-145); Total Bilirubin 1.3 mg/dL (0.15-1.2)
[2025-03-13] MEDS: sodium chloride 0.9% 1,000 ML 30 ML IV (09:36)
--- NOTE | 2025-03-13 10:34 | ANES.PREANE2 ---
Pre-Anesthetic Assessment Height/Weight: Height 5 ft 3 in Weight 96 lb 12.8 oz Temp Pulse Resp BP Pulse Ox O2 Del Method 98.5 F 68 18 150/84 96 Room Air 03/13/25 07:26 03/13/25 09:41 03/13/25 09:41 03/13/25 09:41 03/13/25 09:41 03/13/25 09:41 Preop Diagnosis: Left distal femur fracture Operation Date: 03/13/25 10:10 Proposed Procedures p ORIF Femur- left distal(Left) - Cristobal Galan MD Was Beta Dex taken within 24 hours: N/A Was Clonidine taken within 24 hours: N/A Last intake: Intake Last Liquid Date 03/12/25 Last Liquid Time 20:00 Last Solid Date 03/11/25 Last Solid Time 21:00 Social Alcohol and Tobacco Exam alert, oriented x 3 and regular rate & rhythm Decreased breath sounds bilaterally Airway Submandibular: within normal limits Cervical ROM: within normal limits Mallampati: Class III Dentition: full Anesthetic Plan ASA status: 3 Anesthesia: General Other: No prior issues with anesthesia NPO since yesterday Patient arrived to the ER yesterday after being found down on the ground at home. Blood alcohol level over 200s at admission. Patient admits to drinking multiple drinks in the evening to help her sleep but denies alcoholism Current everyday smoker Denies any cardiac history, METs greater than 4 EKG at admission showing mild ST depression but patient denies any chest pain or shortness of breath Labs reviewed acceptable for procedure Plan for general anesthesia with possible postop nerve block Medications/Allergies Home Medications ?Medication ?Instructions ?Recorded ?Confirmed ?Last Taken ?Type ibuprofen 800 mg tablet 800 mg PO DAILY 03/12/25 03/12/25 Unknown History Allergies Allergy/AdvReac Type Severity Reaction Status Date / Time No Known Allergies Allergy Verified 12/16/24 16:15 Current Medications Generic Name Dose Route Start Last Admin Trade Name Freq PRN Reason Stop Dose Admin Enoxaparin Sodium 40 mg 03/12/25 14:55 03/12/25 16:15 Enoxaparin 40 Mg/0.4 Ml Syringe SUBCUT 40 mg Q24H EDEN Administration Sodium Chloride 1,000 mls @ 30 mls/hr 03/13/25 09:30 03/13/25 09:36 Sodium Chloride 0.9% IV 30 mls/hr .Q24H EDEN Administration Morphine Sulfate 2 mg 03/12/25 14:55 03/13/25 03:44 Morphine 4 Mg/Ml Sdv 1 Ml IVP 2 mg Q4H PRN Administration SEVERE PAIN PFSH Anesthesia Medical History Diarrhea Closed left tibial fracture Sprain of deltoid ligament of left ankle Closed fracture of left distal fibula Social History Smoking and tobacco/nicotine status: current every day tobacco/nicotine user Alcohol intake: current Substance/Drug Use: never Household members: family Data Anesthesia 03/13/25 04:12 03/13/25 04:12 Short CBC 03/12/25 03/13/25 Range/Units 09:38 04:12 WBC 7.07 8.30 (3.29-11.43) 10^3/uL Hgb 15.20 14.00 (11.27-16.99) g/dL Hct 44.2 40.8 (36-47) % MCV 109.7 H 110.3 H (85-98) fl Plt Count 153 L 124 L (157-399) 10^3/cmm Neut % (Auto) 67.4 65.8 % Neut # (Auto) 4.77 5.46 (1.8-7.7) 10^3/uL BMP 03/12/25 03/13/25 09:38 04:12 Sodium 138 140 Potassium 3.7 4.2 Chloride 102 103 Carbon Dioxide 23 28 BUN 8 10 Creatinine 0.6 0.6 Glucose 109 102 Calcium 8.5 8.2 L Cardiac Enzymes 03/12/25 03/12/25 03/12/25 Range/Units 09:38 12:37 15:08 Creatine Kinase 82 (26-192) U/L Troponin T Baseline 38 H (0-10) ng/L Troponin T 120 Minute 35.85 H (0-10) ng/L Delta Troponin T -2.15 L (0-10) ABS# Troponin T Hi Sens 6Hr (0-10) ng/L Troponin T Hi Sens 6Hr Delta (0-12) ng/L 03/12/25 Range/Units 18:36 Creatine Kinase (26-192) U/L Troponin T Baseline (0-10) ng/L Troponin T 120 Minute (0-10) ng/L Delta Troponin T (0-10) ABS# Troponin T Hi Sens 6Hr 36.47 H (0-10) ng/L Troponin T Hi Sens 6Hr Delta -1.53 L (0-12) ng/L Liver Function 03/12/25 03/13/25 Range/Units 09:38 04:12 Total Bilirubin 0.5 1.3 H (0.15-1.2) mg/dL AST 22 24 (0-32) U/L ALT 13 13 (0-33) U/L Alkaline Phosphatase 139 H 133 H (35-105) U/L Albumin 3.2 L 2.9 L (3.5-5.2) g/dL COVID Results 03/12/25 12:14 SARS-CoV-2 (PCR) Negative Coags 03/12/25 09:38 PT 13.80 INR 0.99 APTT 23.0 L
--- NOTE | 2025-03-13 11:02 | W.PM.OPSUD ---
Surgery/Procedure H&P Update DATE OF PROCEDURE: March 13, 2025 DATE H&P PERFORMED: 03/13/25 H&P UPDATE INFORMATION: I have reviewed H&P completed within last 30 days, I have examined patient prior to procedure and No changes to prior documentation PREOP DIAGNOSIS: Left distal femur fracture PRIMARY INDICATION FOR PROCEDURE: Fracture distal left femur PLANNED PROCEDURE: Operation Date: 03/13/25 10:10 Proposed Procedures p ORIF Femur- left distal(Left) - Cristobal Galan MD
[2025-03-13] MEDS: ceFAZolin 2,000 mg SDV 2000 MG IVP ×2 (11:22→20:04)
--- NOTE | 2025-03-13 12:47 | P.PN_ITS ---
Subjective 2 Subjective: Patient was seen this morning, she was seen in preop, denies any chest pain, no palpitations, shortness of breath, no abdominal pain, complains of left knee pain Vitals/I&O/Wt Last Vital Signs Temp 98.5 F 03/13/25 07:26 Pulse 68 03/13/25 09:41 Resp 18 03/13/25 09:41 BP 150/84 03/13/25 09:41 Pulse Ox 96 03/13/25 09:41 O2 Del Method Room Air 03/13/25 09:41 03/12/25 03/13/25 03/13/25 22:59 06:59 14:59 Intake Total 440 / 440 0 / 440 Output Total 100 / 700 150 / 850 Balance 340 / -260 -150 / -410 Weight last 48 hrs Weight 43.908 kg Weight 43.636 kg Physical Exam 2 Const: COMMON NORMALS: no acute distress and patient oriented x3 Resp: COMMON NORMALS: normal respiratory effort, No retractions, No use of accessory muscles and clear to auscultation bilaterally AUSCULTATION: clear to auscultation bilaterally Cardio: COMMON NORMALS: regular rate, regular rhythm, S1 normal heart sound present and S2 normal heart sound present RATE: regular rate RHYTHM: r egular rhythm HEART SOUNDS: S1 normal heart sound present and S2 normal heart sound present GI: COMMON NORMALS: Normal to inspection, nondistended, normoactive bowel sounds present and non-tender Extremity: COMMON NORMALS: no pedal edema Neuro: COMMON NORMALS: patient oriented x3 Psych: COMMON NORMALS: mental status grossly normal Skin: NARRATIVE SKIN EXAM: DP PT pulses palpable Evidence of protein calorie malnutrition, temporal muscle wasting, bilateral ribs, clavicles, fat pad thinning Data 03/13/25 04:12 03/13/25 04:12 A&P Assessment and plan (1) Closed left femoral fracture: comminuted, angulated and slightly impacted fracture of the distal left femur Plan -Currently n.p.o. - Plan on surgical intervention - Continue morphine for pain control - Zofran for nausea - Lovenox for DVT prophylaxis - PT OT postoperatively (2) Alcohol intoxication: - Start CIWA protocol monitor for alcohol withdrawal Plan Alcohol use disorder: Cessation counseling Diarrhea: Monitor Smoking: Smoking cessation counseling Physical deconditioning, protein, malnutrition, BMI 17 - Likely secondary to smoking, COPD, alcoholism - Consult dietary - PT OT PDMP PDMP Reviewed: Not Reviewed Attestations 2 Medical Necessity Statement*: Patient requires hospitalization for left distal femur fracture requiring surgical intervention, corneal malnutrition, alcohol withdrawal Diagnoses Closed left femoral fracture S72.92XA Alcohol intoxication F10.929
--- NOTE | 2025-03-13 12:52 | PC.SOCIAL ---
IMM Updated Updated pt's daughter via phone on IMM. No questions voiced. Provided a copy at pt's bedside. Initialed, dated, & timed a copy & placed in chart.
--- NOTE | 2025-03-13 13:03 | PM.OP ---
Operative Report Date of procedure: March 13, 2025 Surgeon: Cristobal Galan MD Procedure: Preop diagnosis: Supracondylar fracture left distal femur Postop diagnosis: Same Procedure: Open reduction with internal fixation of distal left femur fracture Surgeon: Cristobal Galan MD Compensation Analyst: DANIELA Reardon was needed in this procedure for assistance with positioning the patient, prepping the patient, assistance during the surgery for helping to reduce the fracture while placing reduction clamps as well as the final hardware. She is also necessary for wound closure, dressing and brace placement. Anesthesia: General Tourniquet time: 1 hour at 250 mmHg EBL: 50 cc Indications: Demetrice is a 74-year-old white female who is a known alcohol abuser. She is found 24 hours ago on the floor of her home by her daughter. Patient was grossly intoxicated and had been drinking the night before. Patient has no idea what happened. Patient had pain and deformity over the left distal femur/knee region at the time of admission to the ED. X-rays there demonstrated a supracondylar fracture of the left distal femur. Patient was admitted through the hospitalist service and orthopedic consultation was obtained. After evaluation of the x-rays and discussing this with the patient is felt she would most benefit from surgical repair of this fracture. All risk benefits treatment alternatives were discussed with her and she is agreeable to this. Patient is familiar with this due to the fact that she is already had a left ankle fracture, recently a left tibia fracture that was fixed here at this hospital with a tibial nail. Now with a distal femur fracture all on the left side. Procedure: After obtaining her consent patient was taken to the operating room placed table supine position general anesthetic administered. Once good anesthesia was achieved pneumatic cuffs placed on the proximal left thigh. Left leg and thigh were prepped and draped in the usual fashion. After surgical timeout pneumatic cuff is inflated to 250 mmHg. Longitudinal incision was made from the lateral knee joint line approximately along the course of the femur of the lateral side of the lower extremity. Sharp dissect taken on down to subcutaneous tissue electrocautery used for hemostasis. Incision was taken on down through the tensor fascia rk and muscle muscular tissue was divided between anterior and posterior compartments to expose the lateral femur. Camacho elevator was used to strip soft tissue from the area. Once fracture line had been dissected out soft tissues were dissected out of the fracture line. Then under gentle traction and manipulation as well as using bone clamps the fracture was reduced. This was confirmed under fluoroscopic evaluation at this time. Subsequently, a 14 hole lateral distal femoral plate was positioned over the lateral femur. Locking pin was placed in the distal portion into the condyles. Under fluoroscopic evaluation fracture was then reduced further and a locking pin was put through the proximal part of the plate to ensure initial reduction and stability. Subsequently 1 nonlocking transfer screw was placed to the distal plate through the condyles. 3 more locking screws were also placed through various holes until adequate fixation of the distal plate to the femur was achieved. Again this was confirmed under fluoroscopic evaluation. At this point proximal pin was removed from the plate and again the fracture was visualized under fluoroscopy and under direct visualization and manipulation fracture was further reduced and locking pin was placed through the proximal portion of the plate for part to help further reduce fracture. Subsequently 3 bicortical screws and equidistant from the superior hole alternating holes coming down the femur were placed with good fixation good compression of the plate to the femur. Interoperative fluoroscopy demonstrated adequate reduction and fixation of this fracture. Wound was then washed with copious amounts of sterile irrigation. Deep structures reapproximated with #1 Vicryl [id number] sutures. Subcutaneous tissues was reapproximated the running subcuticular strata fix 2-0 suture. Pneumatic cuff is deflated after 1 hour total tourniquet time at this point. Skin edges were then approximate with skin olga. Wounds are clean and dry dressed with Adaptic dressing sterile gauze dressing and occlusive dressing. Patient was then placed into a hinged knee brace locked out to full extension on this left leg. Patient was awakened transferred recovery in stable condition
--- NOTE | 2025-03-13 13:22 | XR_ITS ---
WS: [id number] Left knee, C-arm fluoroscopy views, 03/13/2025 Clinical Data: or pic, orif knee Comparison: Left knee, 03/12/2025 Findings: Dr. Sanders reduce the distal left femoral fracture with a lateral plate and multiple orthopedic screws. XR/XR knee LT 1-2V 04081 Impression: Internal fixation of distal left femoral fracture.
--- NOTE | 2025-03-13 13:35 | ANE.PACU2 ---
Inpatient post-anesthesia follow up: Airway intact: Yes Vital signs: Temperature 98.3 F Pulse Rate 80 Respiratory Rate 16 Blood Pressure 123/81 Pulse Oximetry 97 Oxygen Delivery Me thod Room Air Oxygen Flow Rate Fraction of Inspir ed Oxygen Hydration adequate: Yes Nausea and vomiting: No Pain level: 1 Mental status: Baseline
[2025-03-13] MEDS: thiamine 100 mg/mL 2mL SDV IM (14:24)
[2025-03-13] MEDS: enoxaparin 40 mg/0.4 mL Syringe SUBCUT (14:24)
[2025-03-13] MEDS: iron polysaccharide complex 150 mg Capsule PO (17:00)
[2025-03-13] MEDS: mupirocin oint 22 gm 1 APPLIC NASAL (17:00)
[2025-03-13] MEDS: calcium carbonate 500 mg Chew Tablet 1000 MG PO (17:00)
[2025-03-13] MEDS: sennosides-docusate Tablet 2 TAB PO (17:00)
[2025-03-13] MEDS: chlorhexidine gluconate 0.12% Btl 473 mL 30 ML MUCOUS MEM (20:09)
[2025-03-14] MEDS: morphine 4 mg/mL SDV 1 mL 2 MG IVP (02:27)
[2025-03-14] MEDS: ceFAZolin 2,000 mg SDV 2000 MG IVP ×2 (02:32→11:58)
[2025-03-14 03:47] LABS: Basophils % 0.1 %; Eosinophils % 0.1 %; Hematocrit 36.1 % (36-47); Lymphocytes # 1.3 10^3/uL (0.8-4.8); Lymphocytes % 16.8 %; Mean Corpuscular HGB Conc 33.5 g/dL (30-55); Mean Corpuscular Hemoglobin 37.9 pg (27-33); Mean Corpuscular Volume 113.2 fl (85-98); Mean Platelet Volume 10.9 fL (7.4-10.4); Monocytes # 0.9 10^3/uL (0.2-0.9); Monocytes % 12.2 %; Neutrophils # 5.22 10^3/uL (1.8-7.7); Neutrophils % 70.4 %; Nucleated Red Blood Cells % 0 %; Platelet Count 140 10^3/cmm (157-399); Red Blood Count 3.19 10^6/uL (3.85-5.65); Red Cell Distribution Width 18.3 % (12.1-15.1); White Blood Count 7.43 10^3/uL (3.29-11.43)
[2025-03-14 03:58] VITALS: BP 104/75; PULSE 74; RESP 17; TEMP 37.3; O2SAT 99
[2025-03-14 04:07] LABS: Anion Gap 16.2 (5-19); Blood Urea Nitrogen 15 mg/dL (8-23); Calcium 8.1 mg/dL (8.5-10.5); Carbon Dioxide 24 mmol/L (22-29); Chloride 100 mmol/L (98-107); Creatinine Clr Calc Pharmacy 36.0497; Glucose 100 mg/dL (65-115); Osmolality Calculated 283 mOsm/kg (285-295); Potassium 4.2 mmol/L (3.5-5.1); Sodium 136 mmol/L (136-145)
[2025-03-14 08:08] VITALS: BP 120/72; PULSE 74; RESP 16; TEMP 36.4; O2SAT 95
[2025-03-14] MEDS: aspirin 325 mg EC Tablet PO (08:38)
[2025-03-14] MEDS: sennosides-docusate Tablet 2 TAB PO (08:38)
[2025-03-14] MEDS: multivitamin therapeutic Tablet 1 TAB PO (08:38)
[2025-03-14] MEDS: HYDROcodone-acetaminophen 5-325 mg Tablet 1 TAB PO ×2 (08:38→23:20)
[2025-03-14] MEDS: cholecalciferol (vitamin D3) 1,000 unit Tablet 1000 UNIT PO (08:38)
[2025-03-14] MEDS: iron polysaccharide complex 150 mg Capsule PO ×2 (08:38→17:41)
[2025-03-14] MEDS: folic acid 1 mg Tablet PO (08:38)
[2025-03-14] MEDS: thiamine 100 mg Tablet PO (08:38)
--- NOTE | 2025-03-14 09:44 | PM.PN ---
Subjective Subjective: Patient is status post open reduction internal fixation of distal left femur fracture. She is now about 12 hours out from surgery. Does not have that much complaints of pain. She is complaining of right knee pain still at this time. Patient still in denial about why she fell and injured her leg. Medications: Reviewed: Yes Vitals/I&O/Wt Last Vital Signs Temp 97.6 F 03/14/25 08:08 Pulse 74 03/14/25 08:08 Resp 16 03/14/25 08:08 BP 120/72 03/14/25 08:08 Pulse Ox 95 03/14/25 08:08 O2 Del Method Room Air 03/14/25 08:08 03/13/25 03/14/25 03/14/25 22:59 06:59 14:59 Intake Total 0 / 0 120 / 120 1054.5 / 1054.5 Output Total 300 / 350 100 / 450 Balance -300 / -350 20 / -330 1054.5 / 1054.5 Weight last 48 hrs Weight 79 lb 3.2 oz Weight 96 lb 12.8 oz Weight 96 lb 3.2 oz Physical Exam Narrative: On exam today she is neurovascular intact distal left foot. Dressings are clear. Patient does have tenderness about the right knee though no swelling is evident. Data 03/14/25 02:59 03/14/25 02:59 A&P Assessment and plan (1) Supracondylar fracture of left femur: Patient status post open reduction internal fixation supracondylar fracture left distal femur. Patient still complain about right knee pain Plan Plan at this time is to advance her activities with physical therapy and nonweightbearing on the left side. Must wear brace at all times. Her hemoglobin and other labs are good today. Showing no signs of DTs at this time. I have left a message with her nurse that the patient more than likely will need an alcoholic beverage i.e. cocktail at least twice a day to avoid DTs. I will leave this to the hospitalist to order Due to the fact she still complain of right knee pain I will go ahead and obtain x-rays of that also. PDMP PDMP Reviewed: Not Reviewed Attestations Medical Necessity Statement*: Patient is status post open reduction internal fixation of left femur fracture and need of continued pain control, physical therapy to learn to walk without bearing weight. She will need help with ADLs. Monitor her alcoholism. Patient may need correction facility for recovery Coding Level of Care Code Critical Care >/= 30 minutes Diagnoses Closed supracondylar fracture of left femur, initial encounter S72.452A Encounter type: initial encounter Fracture type: closed
--- NOTE | 2025-03-14 09:48 | XRR_ITS ---
PROCEDURE INFORMATION: Exam: XR Right Knee Exam date and time: 03/14/2025 10:38 AM Age: 74 years old Clinical indication: Pain; Knee; Right; Additional info: RT knee pain/swelling post fall x 2 days ago; PT had lt lower ext orif x 1 day ago TECHNIQUE: Imaging protocol: Radiologic exam of the right knee. Views: 1 or 2 views. COMPARISON: No relevant prior studies available. FINDINGS: Bones/joints: Osseous structures are intact. No fracture or malalignment. Joint surfaces preserved. Soft tissues: There is a small joint effusion of the patella. XR/XR knee RT 1-2V 26149 IMPRESSION: No acute bony abnormalities. Small joint effusion.
[2025-03-14 11:06] VITALS: BP 110/73; PULSE 66; RESP 18; TEMP 36.8; O2SAT 98
--- NOTE | 2025-03-14 13:33 | P.PN_ITS ---
Subjective 2 Subjective: Patient was seen this morning, she is alert to person, to place, not to time she follows commands, she tells me she did not sleep much overnight, Vitals/I&O/Wt Last Vital Signs Temp 98.2 F 03/14/25 11:06 Pulse 66 03/14/25 11:06 Resp 18 03/14/25 11:06 BP 110/73 03/14/25 11:06 Pulse Ox 98 03/14/25 11:06 O2 Del Method Room Air 03/14/25 08:08 03/13/25 03/14/25 03/14/25 22:59 06:59 14:59 Intake Total 0 / 0 120 / 120 1054.5 / 1054.5 Output Total 300 / 350 100 / 450 Balance -300 / -350 20 / -330 1054.5 / 1054.5 Weight last 48 hrs Weight 35.925 kg Weight 43.908 kg Weight 43.636 kg Physical Exam 2 Const: COMMON NORMALS: no acute distress ORIENTATION/CONSCIOUSNESS: Yes awake, Yes oriented to person and Yes oriented to place; not oriented to time Resp: COMMON NORMALS: normal respiratory effort, No retractions, No use of accessory muscles and clear to auscultation bilaterally AUSCULTATION: clear to auscultation bilaterally Cardio: COMMON NORMALS: regular rate, regular rhythm, S1 normal heart sound present and S2 normal heart sound present RATE: regular rate RHYTHM: r egular rhythm HEART SOUNDS: S1 normal heart sound present and S2 normal heart sound present GI: COMMON NORMALS: Normal to inspection, nondistended, normoactive bowel sounds present and non-tender Extremity: COMMON NORMALS: no pedal edema NARRATIVE EXTREMITY EXAM: Left knee knee immobilizer Neuro: SENSORIUM/ORIENTATION: Yes oriented to person, Yes oriented to place and No oriented to time Psych: COMMON NORMALS: mental status grossly normal Data 03/14/25 02:59 03/14/25 02:59 A&P Assessment and plan (1) Closed left femoral fracture: comminuted, angulated and slightly impacted fracture of the distal left femur - Status post surgical intervention Plan --Hydrocodone for pain control -Aspirin 325 daily - Zofran for nausea - Lovenox for DVT prophylaxis - PT OT postoperatively (2) Alcohol intoxication: - CIWA protocol monitor for alcohol withdrawal Plan Alcohol withdrawal concerns, CIWA protocol Diarrhea: Monitor Smoking: Smoking cessation counseling Physical deconditioning, protein, malnutrition, BMI 17 - Likely secondary to smoking, COPD, alcoholism - Consult dietary - PT OT PDMP PDMP Reviewed: Not Reviewed Attestations 2 Medical Necessity Statement*: Patient requires hospitalization for alcohol withdrawal Diagnoses Closed left femoral fracture S72.92XA Alcohol intoxication F10.929
[2025-03-14] MEDS: enoxaparin 40 mg/0.4 mL Syringe SUBCUT (15:07)
[2025-03-14 16:15] VITALS: BP 117/75; PULSE 70; RESP 17; TEMP 36.9; O2SAT 99
[2025-03-14 20:00] VITALS: BP 124/77; PULSE 73; RESP 17; TEMP 37.6; O2SAT 96
[2025-03-14] MEDS: chlorhexidine gluconate 0.12% Btl 473 mL 30 ML MUCOUS MEM (20:50)
[2025-03-15] VITALS: BP 124/84; PULSE 75; RESP 17; TEMP 37.6; O2SAT 97
[2025-03-15 04:00] VITALS: BP 154/90; PULSE 60; RESP 15; TEMP 36.7; O2SAT 99
[2025-03-15 04:22] LABS: Basophils % 0.3 %; Eosinophils % 0.6 %; Hematocrit 32.1 % (36-47); Lymphocytes # 1.7 10^3/uL (0.8-4.8); Lymphocytes % 26.5 %; Mean Corpuscular Hemoglobin 38.4 pg (27-33); Mean Platelet Volume 10.9 fL (7.4-10.4); Monocytes # 0.7 10^3/uL (0.2-0.9); Monocytes % 11.1 %; Neutrophils # 4.01 10^3/uL (1.8-7.7); Nucleated Red Blood Cells % 0 %; Platelet Count 142 10^3/cmm (157-399); Red Blood Count 2.84 10^6/uL (3.85-5.65); Red Cell Distribution Width 17.9 % (12.1-15.1); White Blood Count 6.57 10^3/uL (3.29-11.43)
[2025-03-15 04:45] LABS: Alanine Aminotransferase < 5 U/L (0-33); Albumin Level 2.3 g/dL (3.5-5.2); Alkaline Phosphatase 95 U/L (35-105); Anion Gap 11.9 (5-19); Aspartate Amino Transferase 14 U/L (0-32); Blood Urea Nitrogen 17 mg/dL (8-23); Calcium 8.1 mg/dL (8.5-10.5); Carbon Dioxide 26 mmol/L (22-29); Chloride 101 mmol/L (98-107); Creatinine Clr Calc Pharmacy 36.0497; Globulin 2.2 g/dL (1.3-4.6); Glucose 85 mg/dL (65-115); Osmolality Calculated 281 mOsm/kg (285-295); Potassium 3.9 mmol/L (3.5-5.1); Sodium 135 mmol/L (136-145); Total Protein 4.5 g/dL (6.6-8.7)
[2025-03-15 07:45] VITALS: BP 125/75; PULSE 63; RESP 16; TEMP 36.6; O2SAT 99
[2025-03-15] MEDS: folic acid 1 mg Tablet PO (08:25)
[2025-03-15] MEDS: iron polysaccharide complex 150 mg Capsule PO ×2 (08:25→17:10)
[2025-03-15] MEDS: aspirin 325 mg EC Tablet PO (08:25)
[2025-03-15] MEDS: multivitamin therapeutic Tablet 1 TAB PO (08:25)
[2025-03-15] MEDS: thiamine 100 mg Tablet PO (08:25)
[2025-03-15] MEDS: chlorhexidine gluconate 0.12% Btl 473 mL 30 ML MUCOUS MEM ×4 (08:25→20:05)
[2025-03-15] MEDS: sennosides-docusate Tablet 2 TAB PO (08:25)
[2025-03-15] MEDS: calcium carbonate 500 mg Chew Tablet 1000 MG PO ×2 (08:25→17:10)
[2025-03-15] MEDS: cholecalciferol (vitamin D3) 1,000 unit Tablet 1000 UNIT PO (08:25)
[2025-03-15] MEDS: mupirocin oint 22 gm 1 APPLIC NASAL ×2 (08:26→17:10)
--- NOTE | 2025-03-15 10:25 | P.PN_ITS ---
Subjective 2 Subjective: Patient is now postop day 2 from open reduction internal fixation left distal femur fracture. She has no complaints other than her knee hurts as to be expected. No other concerns at this time. She appears to have her pain controlled fairly well. She is awake and alert today. Patient is not complaining of right knee pain today Medications: Reviewed: Yes Vitals/I&O/Wt Last Vital Signs Temp 97.8 F 03/15/25 07:45 Pulse 63 03/15/25 07:45 Resp 16 03/15/25 07:45 BP 125/75 03/15/25 07:45 Pulse Ox 99 03/15/25 07:45 O2 Del Method Room Air 03/15/25 07:45 03/14/25 03/15/25 03/15/25 22:59 06:59 14:59 Intake Total 240 / 240 Balance 240 / 240 Weight last 48 hrs Weight 95 lb 6.4 oz Weight 79 lb 3.2 oz Physical Exam 2 Narrative: On exam today patient has a brace on and Ramakrishna wrap from toes to groin. Does not appear to be swollen underneath these dressings. She is slightly tender to palpation over the area. She is neurovascularly intact distally Data 03/15/25 03:48 03/15/25 03:48 A&P Assessment and plan (1) Supracondylar fracture of left femur: Status post ORIF supracondylar fracture left femur tolerating this well Normal-appearing right knee on x-ray today Plan Plan at this time is to continue on with physical therapy for nonweightbearing ambulation on the left. Patient progressing well. So far no signs of alcohol withdrawal PDMP PDMP Reviewed: Not Reviewed Attestations 2 Medical Necessity Statement*: Patient still needed pain medication and as well as assistance with ADL. She needs formal physical therapy to learn to walk without weightbearing on the left Coding Level of Care Code Critical Care >/= 30 minutes Diagnoses Closed supracondylar fracture of left femur, initial encounter S72.452A Encounter type: initial encounter Fracture type: closed
[2025-03-15 11:15] VITALS: BP 134/86; PULSE 90; RESP 16; TEMP 36.9; O2SAT 97
--- NOTE | 2025-03-15 13:34 | P.PN_ITS ---
Subjective 2 Subjective: Patient was seen this morning, she denies any fevers, chills, cough, does report diarrhea Vitals/I&O/Wt Last Vital Signs Temp 98.5 F 03/15/25 11:15 Pulse 90 03/15/25 11:15 Resp 16 03/15/25 11:15 BP 134/86 03/15/25 11:15 Pulse Ox 97 03/15/25 11:15 O2 Del Method Room Air 03/15/25 11:15 03/14/25 03/15/25 03/15/25 22:59 06:59 14:59 Intake Total 480 / 480 Output Total 650 / 650 Balance -170 / -170 Weight last 48 hrs Weight 43.273 kg Weight 35.925 kg Physical Exam 2 Const: COMMON NORMALS: no acute distress and patient oriented x3 Resp: COMMON NORMALS: normal respiratory effort, No retractions, No use of accessory muscles and clear to auscultation bilaterally AUSCULTATION: clear to auscultation bilaterally Cardio: COMMON NORMALS: regular rate, regular rhythm, S1 normal heart sound present and S2 normal heart sound present RATE: regular rate RHYTHM: r egular rhythm HEART SOUNDS: S1 normal heart sound present and S2 normal heart sound present GI: COMMON NORMALS: Normal to inspection, nondistended, normoactive bowel sounds present and non-tender Extremity: COMMON NORMALS: no pedal edema NARRATIVE EXTREMITY EXAM: Lower extremity in a immobilizer Neuro: COMMON NORMALS: patient oriented x3 Psych: COMMON NORMALS: mental status grossly normal Data 03/15/25 03:48 03/15/25 03:48 A&P Assessment and plan (1) Closed left femoral fracture: comminuted, angulated and slightly impacted fracture of the distal left femur - Status post surgical intervention Plan --Hydrocodone for pain control -Aspirin 325 daily - Zofran for nausea - Lovenox for DVT prophylaxis - PT OT postoperatively (2) Alcohol intoxication: - CIWA protocol monitor for alcohol withdrawal Plan Alcohol withdrawal concerns, CIWA protocol Diarrhea: Monitor Smoking: Smoking cessation counseling Physical deconditioning, protein, malnutrition, BMI 17 - Likely secondary to smoking, COPD, alcoholism - Consult dietary - PT OT Diarrhea, monitor C. difficile PDMP PDMP Reviewed: Not Reviewed Attestations 2 Medical Necessity Statement*: Patient requires hospitalization, close to femoral fracture, alcohol withdrawal Diagnoses Closed left femoral fracture S72.92XA Alcohol intoxication F10.929
[2025-03-15] MEDS: HYDROcodone-acetaminophen 5-325 mg Tablet 1 TAB PO ×2 (13:47→22:23)
[2025-03-15] MEDS: enoxaparin 40 mg/0.4 mL Syringe SUBCUT (13:49)
[2025-03-15 16:00] VITALS: BP 114/78; PULSE 72; RESP 16; TEMP 36.8; O2SAT 99
[2025-03-15 19:50] VITALS: BP 123/77; PULSE 60; RESP 16; TEMP 37; O2SAT 94
[2025-03-16] VITALS: BP 112/71; PULSE 62; RESP 17; TEMP 37; O2SAT 98
[2025-03-16 04:00] VITALS: BP 118/71; PULSE 70; RESP 16; TEMP 36.8; O2SAT 96
[2025-03-16 04:23] LABS: Basophils % 0.3 %; Eosinophils # 0.1 10^3/uL (0.0-0.8); Lymphocytes # 1.7 10^3/uL (0.8-4.8); Lymphocytes % 28.8 %; Mean Corpuscular HGB Conc 33.9 g/dL (30-55); Mean Corpuscular Hemoglobin 38.3 pg (27-33); Mean Corpuscular Volume 113.1 fl (85-98); Mean Platelet Volume 10.7 fL (7.4-10.4); Monocytes # 0.7 10^3/uL (0.2-0.9); Monocytes % 10.9 %; Neutrophils # 3.47 10^3/uL (1.8-7.7); Neutrophils % 58.5 %; Nucleated Red Blood Cells % 0 %; Platelet Count 149 10^3/cmm (157-399); Red Blood Count 2.74 10^6/uL (3.85-5.65); Red Cell Distribution Width 17.5 % (12.1-15.1); White Blood Count 5.94 10^3/uL (3.29-11.43)
[2025-03-16 04:44] LABS: Alanine Aminotransferase < 5 U/L (0-33); Albumin Level 2.4 g/dL (3.5-5.2); Alkaline Phosphatase 92 U/L (35-105); Anion Gap 12.4 (5-19); Aspartate Amino Transferase 14 U/L (0-32); Blood Urea Nitrogen 18 mg/dL (8-23); Calcium 8.4 mg/dL (8.5-10.5); Carbon Dioxide 27 mmol/L (22-29); Chloride 99 mmol/L (98-107); Creatinine Clr Calc Pharmacy 42.3756; Globulin 2.2 g/dL (1.3-4.6); Glucose 81 mg/dL (65-115); Osmolality Calculated 279 mOsm/kg (285-295); Potassium 4.4 mmol/L (3.5-5.1); Sodium 134 mmol/L (136-145); Total Bilirubin 0.9 mg/dL (0.15-1.2); Total Protein 4.6 g/dL (6.6-8.7)
[2025-03-16 07:52] VITALS: BP 146/91; PULSE 88; RESP 16; TEMP 37.2; O2SAT 97
[2025-03-16] MEDS: multivitamin therapeutic Tablet 1 TAB PO (08:37)
[2025-03-16] MEDS: cholecalciferol (vitamin D3) 1,000 unit Tablet 1000 UNIT PO (08:37)
[2025-03-16] MEDS: calcium carbonate 500 mg Chew Tablet 1000 MG PO ×2 (08:37→18:17)
[2025-03-16] MEDS: HYDROcodone-acetaminophen 5-325 mg Tablet 1 TAB PO ×3 (08:37→21:55)
[2025-03-16] MEDS: iron polysaccharide complex 150 mg Capsule PO ×2 (08:38→18:17)
[2025-03-16] MEDS: folic acid 1 mg Tablet PO (08:38)
[2025-03-16] MEDS: thiamine 100 mg Tablet PO (08:38)
[2025-03-16] MEDS: mupirocin oint 22 gm 1 APPLIC NASAL ×2 (08:38→18:19)
[2025-03-16] MEDS: sennosides-docusate Tablet 2 TAB PO (08:38)
[2025-03-16] MEDS: aspirin 325 mg EC Tablet PO (08:38)
[2025-03-16] MEDS: chlorhexidine gluconate 0.12% Btl 473 mL 30 ML MUCOUS MEM ×4 (08:38→21:50)
--- NOTE | 2025-03-16 10:07 | PC.SOCIAL ---
IMM Update pg 2 of IMM Updated and reviewed w/ patient. Copy provided and copy dated, initialed and placed in chart.
[2025-03-16 11:17] LABS: C.Diff PCR (Lab) POSITIVE (Negative)
[2025-03-16 11:19] LABS: Clostridioides Difficile Toxin POSITIVE (Negative)
--- NOTE | 2025-03-16 11:27 | P.PN_ITS ---
Subjective 2 Subjective: Patient was seen this morning, she reports diarrhea, no fevers, chills, no nausea, no vomiting, does report generalized weakness Vitals/I&O/Wt Last Vital Signs Temp 99.0 F 03/16/25 07:52 Pulse 88 03/16/25 07:52 Resp 16 03/16/25 07:52 BP 146/91 03/16/25 07:52 Pulse Ox 97 03/16/25 07:52 O2 Del Method Room Air 03/16/25 07:52 03/15/25 03/16/25 03/16/25 22:59 06:59 14:59 Intake Total 240 / 720 360 / 360 Balance 240 / -180 360 / 360 Weight last 48 hrs Weight 42.229 kg Weight 43.273 kg Physical Exam 2 Const: COMMON NORMALS: no acute distress and patient oriented x3 Resp: COMMON NORMALS: normal respiratory effort, No retractions, No use of accessory muscles and clear to auscultation bilaterally AUSCULTATION: clear to auscultation bilaterally Cardio: COMMON NORMALS: regular rate, regular rhythm, S1 normal heart sound present and S2 normal heart sound present RATE: regular rate RHYTHM: r egular rhythm HEART SOUNDS: S1 normal heart sound present and S2 normal heart sound present GI: COMMON NORMALS: Normal to inspection, nondistended, normoactive bowel sounds present and non-tender Extremity: COMMON NORMALS: no pedal edema Neuro: COMMON NORMALS: patient oriented x3 Psych: COMMON NORMALS: mental status grossly normal Data 03/16/25 03:42 03/16/25 03:42 A&P Assessment and plan (1) Closed left femoral fracture: comminuted, angulated and slightly impacted fracture of the distal left femur - Status post surgical intervention Plan --Hydrocodone for pain control -Aspirin 325 daily - Zofran for nausea - Lovenox for DVT prophylaxis - PT OT postoperatively (2) Alcohol intoxication: - CIWA protocol monitor for alcohol withdrawal Plan Alcohol withdrawal concerns, CIWA protocol Diarrhea: Monitor Smoking: Smoking cessation counseling Physical deconditioning, protein, malnutrition, BMI 17 - Likely secondary to smoking, COPD, alcoholism - Consult dietary - PT OT Diarrhea, C. difficile positive, start p.o. vancomycin, isolation precautions PDMP PDMP Reviewed: Not Reviewed Attestations 2 Medical Necessity Statement*: Patient requires hospitalization for C. difficile colitis, requiring p.o. antibiotics, left femoral fracture Diagnoses Closed left femoral fracture S72.92XA Alcohol intoxication F10.929
[2025-03-16 11:33] VITALS: BP 123/81; PULSE 80; RESP 16; TEMP 36.8; O2SAT 97
[2025-03-16] MEDS: vancomycin 125 mg Capsule PO ×3 (11:57→23:26)
[2025-03-16] MEDS: enoxaparin 40 mg/0.4 mL Syringe SUBCUT (14:30)
[2025-03-16 16:00] VITALS: BP 117/78; PULSE 84; RESP 17; TEMP 37.1; O2SAT 98
--- NOTE | 2025-03-16 16:28 | PM.PN ---
Subjective Subjective: Patient several days out from open reduction internal fixation of distal left femur fracture. Only complaints of pain in this area. Medications: Reviewed: Yes Vitals/I&O/Wt Last Vital Signs Temp 98.8 F 03/16/25 16:00 Pulse 84 03/16/25 16:00 Resp 17 03/16/25 16:00 BP 117/78 03/16/25 16:00 Pulse Ox 98 03/16/25 16:00 O2 Del Method Room Air 03/16/25 16:00 03/16/25 03/16/25 03/16/25 06:59 14:59 22:59 Intake Total 720 / 720 Balance 720 / 720 Weight last 48 hrs Weight 93 lb 1.6 oz Weight 95 lb 6.4 oz Physical Exam Narrative: No formal exam done today Data 03/16/25 03:42 03/16/25 03:42 A&P Assessment and plan (1) Supracondylar fracture of left femur: Patient is tolerated well of the surgical repair of her distal femur fracture on the left. Plan At this time I have nothing further to add other than continued physical therapy for walker ambulation nonweightbearing. From a orthopedic standpoint this patient may need to be placed in a long-term facility for a while if she is unable to take care of herself or get up and move about. Patient does not need to have wounds checked or sutures removed for another 2 weeks. Therefore from a orthopedic standpoint she can be discharged anytime now. PDMP PDMP Reviewed: Not Reviewed Attestations Medical Necessity Statement*: Patient needed pain medication, continue physical therapy for walker ambulation nonweightbearing on the left Coding Level of Care Code Critical Care >/= 30 minutes Diagnoses Closed supracondylar fracture of left femur, initial encounter S72.452A Encounter type: initial encounter Fracture type: closed
[2025-03-16 20:00] VITALS: BP 128/75; PULSE 63; RESP 16; TEMP 36.5; O2SAT 99
[2025-03-17] VITALS: BP 121/74; PULSE 58; RESP 16; TEMP 36.8; O2SAT 99
[2025-03-17 04:00] VITALS: BP 133/82; PULSE 72; RESP 16; TEMP 37.2; O2SAT 98
[2025-03-17 05:34] LABS: Alanine Aminotransferase < 5 U/L (0-33); Albumin Level 2.3 g/dL (3.5-5.2); Alkaline Phosphatase 94 U/L (35-105); Anion Gap 12.2 (5-19); Aspartate Amino Transferase 15 U/L (0-32); Blood Urea Nitrogen 17 mg/dL (8-23); Calcium 8.3 mg/dL (8.5-10.5); Carbon Dioxide 26 mmol/L (22-29); Chloride 98 mmol/L (98-107); Creatinine Clr Calc Pharmacy 42.3756; Globulin 2.4 g/dL (1.3-4.6); Glucose 89 mg/dL (65-115); Osmolality Calculated 275 mOsm/kg (285-295); Potassium 4.2 mmol/L (3.5-5.1); Sodium 132 mmol/L (136-145); Total Protein 4.7 g/dL (6.6-8.7)
[2025-03-17] MEDS: vancomycin 125 mg Capsule PO ×2 (05:57→11:37)
[2025-03-17] MEDS: HYDROcodone-acetaminophen 5-325 mg Tablet 1 TAB PO ×2 (05:58→12:59)
[2025-03-17 06:46] LABS: Glucose Point of Care 87 mg/dL (70-110)
[2025-03-17] MEDS: folic acid 1 mg Tablet PO (09:38)
[2025-03-17] MEDS: multivitamin therapeutic Tablet 1 TAB PO (09:38)
[2025-03-17] MEDS: iron polysaccharide complex 150 mg Capsule PO (09:38)
[2025-03-17] MEDS: calcium carbonate 500 mg Chew Tablet 1000 MG PO (09:38)
[2025-03-17] MEDS: aspirin 325 mg EC Tablet PO (09:38)
[2025-03-17] MEDS: thiamine 100 mg Tablet PO (09:38)
[2025-03-17] MEDS: mupirocin oint 22 gm 1 APPLIC NASAL (09:39)
[2025-03-17] MEDS: cholecalciferol (vitamin D3) 1,000 unit Tablet 1000 UNIT PO (09:39)
[2025-03-17] MEDS: chlorhexidine gluconate 0.12% Btl 473 mL 30 ML MUCOUS MEM (09:39)
--- NOTE | 2025-03-17 11:48 | P.DS_ITS ---
Discharge Providers Date of Admission: 03/12/25 12:49 Date of Discharge: March 17, 2025 Attending Provider at Admission: Jeff De León Attending Provider at Discharge: Zain Mcdonald MD Primary Care Provider: Silvino Rizvi Diagnoses at Discharge Discharge Diagnosis (1) Supracondylar fracture of left femur: Status: Acute Qualifiers: Encounter type: initial encounter Fracture type: closed Qualified Code(s): S72.452A - Displaced supracondylar fracture without intracondylar extension of lower end of left femur, initial encounter for closed fracture Reason for Visit Reason for Visit: left knee pain - ETOH Hospital Course Hospital Course This is a 74-year-old female with a past medical history of alcoholism, smoking, who presents [facility] closed femoral fracture comminuted impacted fracture of distal left femur. This is a 74-year-old female who presents [facility] for supracondylar fracture of the left femur, orthopedic service was consulted, she tolerated procedure well, she is nonweightbearing left lower extremity, patient will be transferred to intermediate facility for rehab, Patient was found to have C. difficile positive stools during her hospitalization, she was managed with p.o. vancomycin, will be discharged on p.o. vancomycin, no diarrhea on discharge During hospitalizations there was concerns for alcohol withdrawal, she was managed with a CIWA protocol, will be discharged on thiamine, folic acid, aspirin Physical Exam Const: COMMON NORMALS: no acute distress and patient oriented x3 Resp: COMMON NORMALS: normal respiratory effort, No retractions, No use of accessory muscles and clear to auscultation bilaterally AUSCULTATION: clear to auscultation bilaterally Cardio: COMMON NORMALS: regular rate, regular rhythm, S1 normal heart sound present and S2 normal heart sound present RATE: regular rate RHYTHM: regular rhythm HEART SOUNDS: S1 normal heart sound present and S2 normal heart sound present GI: COMMON NORMALS: Normal to inspection, nondistended, normoactive bowel sounds present and non-tender Extremity: COMMON NORMALS: no pedal edema Neuro: COMMON NORMALS: patient oriented x3 Psych: COMMON NORMALS: mental status grossly normal Discharge Data Studies Completed and Pending Completed Studies During Hospitalization Category Date Time Status XR chest 1V portable [id number] Stat Exams 03/12/25 09:19 Completed XR femur LT min 2V* [id number] Stat Exams 03/12/25 09:15 Completed XR knee LT 1-2V [id number] Routine Exams 03/13/25 13:22 Completed XR knee LT 3V* [id number] Stat Exams 03/12/25 07:54 Completed XR knee RT 1-2V [id number] Routine Exams 03/14/25 09:48 Completed Radiology Impressions Femur X-Ray 03/12/25 09:15 PROCEDURE INFORMATION: Exam: XR Left Femur Exam date and time: 03/12/2025 9:18 AM Age: 74 years old Clinical indication: Pain; Thigh; Left; Additional info: Pain, left TECHNIQUE: Imaging protocol: Radiologic exam of the left femur. Views: 2 views. COMPARISON: CR XR knee LT 3V* [id number] 03/12/2025 9:13 AM FINDINGS/IMPRESSION: Bones/joints: There is a comminuted, angulated and slightly impacted fracture of the distal left femur. The proximal and mid shaft of the left femur is intact. There is normal alignment of the left hip. The visualized pubic rami are intact. Soft tissues: Unremarkable. Chest X-Ray 03/12/25 09:19 Impression: Atherosclerosis and hyperinflation. Knee X-Ray 03/14/25 09:48 IMPRESSION: No acute bony abnormalities. Small joint effusion. Laboratory Results WBC 5.94 10^3/uL (3.29-11.43) 03/16/25 03:42 RBC 2.74 10^6/uL (3.85-5.65) L 03/16/25 03:42 Hgb 10.50 g/dL (11.27-16.99) L 03/16/25 03:42 Hct 31.0 % (36-47) L 03/16/25 03:42 MCV 113.1 fl (85-98) H 03/16/25 03:42 MCH 38.3 pg (27-33) H 03/16/25 03:42 MCHC 33.9 g/dL (30-55) 03/16/25 03:42 RDW 17.5 % (12.1-15.1) H 03/16/25 03:42 Plt Count 149 10^3/cmm (157-399) L 03/16/25 03:42 MPV 10.7 fL (7.4-10.4) H 03/16/25 03:42 Neut % (Auto) 58.5 % 03/16/25 03:42 Lymph % (Auto) 28.8 % 03/16/25 03:42 [place] % (Auto) 10.9 % 03/16/25 03:42 Eos % (Auto) 1.0 % 03/16/25 03:42 Baso % (Auto) 0.3 % 03/16/25 03:42 Neut # (Auto) 3.47 10^3/uL (1.8-7.7) 03/16/25 03:42 Lymph # (Auto) 1.7 10^3/uL (0.8-4.8) 03/16/25 03:42 [place] # (Auto) 0.7 10^3/uL (0.2-0.9) 03/16/25 03:42 Eos # (Auto) 0.1 10^3/uL (0.0-0.8) 03/16/25 03:42 Baso # (Auto) 0.0 10^3/uL (0.0-0.1) 03/16/25 03:42 Nucleated RBC % (auto) 0 % 03/16/25 03:42 Nucleated RBCs # 0.0 /100WBC 03/16/25 03:42 PT 13.80 SECONDS (12.1-14.9) 03/12/25 09:38 INR 0.99 (0.8-1.2) 03/12/25 09:38 APTT 23.0 SECONDS (23.9-36.7) L 03/12/25 09:38 Sodium 132 mmol/L (136-145) L 03/17/25 04:32 Potassium 4.2 mmol/L (3.5-5.1) 03/17/25 04:32 Chloride 98 mmol/L (98-107) 03/17/25 04:32 Carbon Dioxide 26 mmol/L (22-29) 03/17/25 04:32 Anion Gap 12.2 (5-19) 03/17/25 04:32 BUN 17 mg/dL (8-23) 03/17/25 04:32 Creatinine 0.6 mg/dL (0.5-0.9) 03/17/25 04:32 GFR Calculation Not Reportable 03/17/25 04:32 Glucose 89 mg/dL (65-115) 03/17/25 04:32 POC Glucose 87 mg/dL (70-110) 03/17/25 06:16 Calculated Osmolality 275 mOsm/kg (285-295) L 03/17/25 04:32 Calcium 8.3 mg/dL (8.5-10.5) L 03/17/25 04:32 Total Bilirubin 1.0 mg/dL (0.15-1.2) 03/17/25 04:32 AST 15 U/L (0-32) 03/17/25 04:32 ALT < 5 U/L (0-33) 03/17/25 04:32 Alkaline Phosphatase 94 U/L (35-105) 03/17/25 04:32 Ammonia 25 umol/L (11-51) 03/12/25 09:38 Creatine Kinase 82 U/L (26-192) 03/12/25 09:38 Troponin T Baseline 38 ng/L (0-10) H 03/12/25 12:37 Troponin T 120 Minute 35.85 ng/L (0-10) H 03/12/25 15:08 Delta Troponin T -2.15 ABS# (0-10) L 03/12/25 15:08 Troponin T Hi Sens 6Hr 36.47 ng/L (0-10) H 03/12/25 18:36 Troponin T Hi Sens 6Hr Delta -1.53 ng/L (0-12) L 03/12/25 18:36 Total Protein 4.7 g/dL (6.6-8.7) L 03/17/25 04:32 Albumin 2.3 g/dL (3.5-5.2) L 03/17/25 04:32 Globulin 2.4 g/dL (1.3-4.6) 03/17/25 04:32 Ethyl Alcohol 203 mg/dL (0-10) H 03/12/25 09:38 C. difficile (PCR) Positive (Negative) H 03/16/25 08:35 C.difficile Tox Confrm Positive (Negative) H 03/16/25 08:35 Influenza A (PCR) Negative (Negative) 03/12/25 12:14 Influenza Type B (PCR) Negative (Negative) 03/12/25 12:14 RSV (PCR) Negative (Negative) 03/12/25 12:14 SARS-CoV-2 (PCR) Negative (Negative) 03/12/25 12:14 Vitals Last Vital Signs Temp 98.9 F 03/17/25 04:00 Pulse 72 03/17/25 04:00 Resp 16 03/17/25 04:00 BP 133/82 03/17/25 04:00 Pulse Ox 98 03/17/25 04:00 O2 Del Method Room Air 03/17/25 04:00 Discharge Plan Discharge Patient Disposition: Home Condition: Stable Prescriptions: New polysaccharide iron complex [Ferrex 150] 150 mg iron Capsule 150 mg PO BIDWM 30 Days Qty: 30 0RF sennosides-docusate sodium [Stool Softener-Laxative] 8.6-50 mg Tablet 1 tab PO BID 30 Days Qty: 60 0RF vancomycin 125 mg Capsule 125 mg PO Q6H 10 Days Qty: 40 0RF aspirin 325 mg Tablet,Delayed Release (Dr/Ec) 325 mg PO DAILY 30 Days Qty: 30 0RF folic acid 1 mg Tablet 1 mg PO DAILY 30 Days Qty: 30 0RF thiamine mononitrate (vit B1) [Vitamin B-1 (mononitrate)] 100 mg Tablet 100 mg PO DAILY 30 Days Qty: 30 0RF multivitamin with folic acid [Thera] 400 mcg Tablet 1 tab PO DAILY 30 Days Qty: 30 0RF hydrocodone-acetaminophen 5-325 mg Tablet 1 tab PO Q6H PRN (Reason: Moderate Pain) 5 Days Qty: 20 0RF Discontinued ibuprofen 800 mg tablet 800 mg PO DAILY Discharge Orders: Discharge Order (Routine); Ordered 03/17/25 Ordered By: Zain Mcdonald Referrals: Cristobal Galan MD [Physician, Orthopedics] - 03/27/25 8:15 am Silvino Rizvi [Primary Care Provider, Family Practice] - 03/20/25 11:00 am Referral Note: Please arrive 15 minutes prior to appointment to complete any paperwork that may be needed. Discharge Diet: Regular Discharge Activity: Resume usual activity Patient Instructions: Hydrocodone/Acetaminophen (By mouth), Vancomycin (By mouth), C. Diff (Clostridioides Difficile) Infection (GEN), Acute Wound Care (DC), Opioid Safety, Post Anesthesia Care Discharge Attestations Time Spent in Discharge Care*: greater than 30 min Quality Metrics Clinical Quality Measures [ No reported AMI, CVA or VTE this stay] Coding Level of Care Code 33386 Total time (in minutes) for Discharge: 45 Diagnoses Closed supracondylar fracture of left femur, initial encounter S72.452A Encounter type: initial encounter Fracture type: closed
[2025-03-17 12:00] VITALS: BP 117/78; PULSE 83; RESP 17; TEMP 36.7; O2SAT 98
--- NOTE | 2025-03-17 12:46 | PC.NURSE ---
This nurse called report to RASHEL King at [facility] at 1245. [facility] expected to be here around 1300 to pick pt up.
== END 2025-03-17 13:43 | disposition skilled nursing facility (03) | DRG 481 ==
LOC: ER 09:51 → ER IP 12:49 → MEDSURG 13:46
PROVIDERS: Orthopaedic Surgery; Admitting Provider Internal Medicine; Emergency Provider Family Medicine; PCP Family Medicine; Visit Provider Family Medicine
PROC: 0QSC04Z Reposition Left Lower Femur with Internal Fixation Device, Open Approach (ICD-10-PCS; principal; 2025-03-13 09:50)
DX: S72.452A Displaced supracondylar fracture without intracondylar extension of lower end of left femur, initial encounter for closed fracture (principal); A04.72 Enterocolitis due to Clostridium difficile, not specified as recurrent; F10.239 Alcohol dependence with withdrawal, unspecified; E46 Unspecified protein-calorie malnutrition; Z68.1 Body mass index [BMI] 19.9 or less, adult; W19.XXXA Unspecified fall, initial encounter; F10.229 Alcohol dependence with intoxication, unspecified; Y90.7 Blood alcohol level of 200-239 mg/100 ml; F17.210 Nicotine dependence, cigarettes, uncomplicated
CPT/HCPCS: 36415; 36416; 71045; 73552; 73560; 73562; 76000; 80048; 80053; 80307; 82140; 82550; 82962; 84484; 85025; 85610; 85730; 87324; 87493; 87637; 93005; 96372; 96374; 97110; 97163; 97166; 97530; 97760; 99285; C1713; J0690; J1650; J2250; J2270; J2704; J3010; J3411; J7030; J9999; L1812

== ENCOUNTER → 2025-03-27 08:26 | Outpatient (BNVA) | payer MEDICARE, MEDICAID, SELFPAY | PROVIDERS: PCP Family Medicine; Visit Provider Nurse Practitioner | DX: Z98.890 Other specified postprocedural states (principal); Z87.81 Personal history of (healed) traumatic fracture | CPT/HCPCS: 73562; 99024 ==

== ENCOUNTER → 2025-04-17 09:35 | Outpatient (BNVA) | payer MEDICARE, SELFPAY | PROVIDERS: PCP Family Medicine; Visit Provider Orthopaedic Surgery | DX: Z98.890 Other specified postprocedural states (principal); Z87.81 Personal history of (healed) traumatic fracture | CPT/HCPCS: 73562; 99024 ==

== ENCOUNTER → 2025-05-18 10:10 | Outpatient (BNVA) | payer MEDICARE, SELFPAY | PROVIDERS: PCP Family Medicine; Visit Provider Orthopaedic Surgery | DX: M25.562 Pain in left knee (principal); Z98.890 Other specified postprocedural states; Z87.81 Personal history of (healed) traumatic fracture | CPT/HCPCS: 73562; 99024 ==